=== PATIENT | male | born 1945 | race Caucasian/White ===

== ENCOUNTER → 2018-10-06 08:58 | Outpatient (CLI) | payer MEDICARE, SELFPAY ==
[2017-03-27 11:31] VITALS: BMI 28.0
--- NOTE | 2018-10-06 09:14 | RAD_ITS ---
STUDY: X-RAY - ABDOMEN/PELVIS REASON FOR EXAM: Male, 73 years old. Annual checkup for kidney stones. TECHNIQUE: AP supine view. COMPARISON: 10/07/2017. FINDINGS: Lung bases are not included. Fecal contents in the colon. At least 2 radiopaque calculi in the left kidney. Sclerotic density overlying the left 12th posterior rib may be ingested material rather than calculus. There is no demonstrated free abdominal air. The visualized liver, spleen and kidneys are grossly normal in size and morphology. Multiple calcified phleboliths in the pelvis are unchanged. No acute osseous abnormality. RAD/Abdomen Single View IMPRESSION: 1. At least 2 radiopaque calculi in the region of the left kidney. CT IVP will be more helpful if clinically warranted. 2. No suspicious acute abnormality in the abdomen. 3. No significant change when compared to 10/07/2017. Electronically Signed: Antonino Blanchard MD at 11:14 EST , Service support ,
--- OUTSIDE RECORDS SUMMARY | 2018-11-29 11:44 | XMS RPT_ITS ---
:1945 Author Organization OHIP Support Name Relationship Address Phone R Unavailable Unavailable Unavailable WEIPIEDAD CHAITANYA Unavailable [address] + [place] [address] R Unavailable Unavailable Unavailable BARON CHAITANYA Unavailable [address] + [place] [address] R Unavailable Unavailable Unavailable ABRON CHAITANYA Unavailable [address] + [place] [id number] BARON, CHAITANYA Unavailable Unavailable + BARON CHAITANYA Unavailable [address] Unavailable [place] [id number] BARON, CHAITANYA Unavailable [address] Unavailable [place] [id number] BARON, CHAITANYA Unavailable [address] [place] [address] BARON, CHAITANYA Unavailable [address] + [place] [address] BARON, CHAITANYA Unavailable [address] Unavailable [place] [id number] BARNO, CHAITANYA Unavailable [address] Unavailable [place] [id number] BARON, CHAITANYA Unavailable Unavailable + BARON CHAITANYA Unavailable [address] Unavailable [place] [id number] BARON, CHAITANYA Unavailable [address] + [place], [facility] BARON, CHAITANYA Unavailable [address] Unavailable [place] [address] BARON, CHAITANYA Unavailable [address] + [place], [facility] BARON, CHAITANYA Unavailable [address] + [place] [address] BARON, CHAITANYA Unavailable [address] + [place] [id number] BARON, CHAITANYA Unavailable [address] + [place] [id number] BARON, CHAITANYA Unavailable Unavailable + BARON CHAITANYA Unavailable Unavailable + WEIPIEDAD, CHAITANYA Unavailable [address] + [place] [address] WEIPIEDAD, CHAITANYA Unavailable [address] + [place] [address] BARON, CHAITANYA Unavailable [address] + [place] [address] BARON, CHAITANYA Unavailable Unavailable + BARON, CHAITANYA Unavailable Unavailable + BARON, CHAITANYA Unavailable Unavailable + Care Team Providers Name Role Phone ESTER ELMORE Attending Unavailable KODZ, JACI C. Primary Care Unavailable ESTER ELMORE Attending Unavailable KODZ, JACI C. Primary Care Unavailable ESTER ELMORE Attending Unavailable KODZ, JACI C. Primary Care Unavailable ESTER ELMORE Admitting Unavailable KAMINI MUNGUIA Attending Unavailable ESTER ELMORE Referring Unavailable KODZ, JACI C. Primary Care Unavailable ESTER ELMORE Referring Unavailable KODZ, JACI C. Primary Care Unavailable ESTER ELMORE Attending Unavailable KODZ, JACI C. Primary Care Unavailable ESTER ELMORE Attending Unavailable KODZ, JACI C. Primary Care Unavailable ARNULFO FORD Attending Unavailable KODZ, JACI C. Primary Care Unavailable ESTER ELMORE Attending Unavailable KODZ, JACI C. Primary Care Unavailable AUDRA MALDONADO Attending Unavailable KODZ, JACI C. Primary Care Unavailable ESTER ELMORE Attending Unavailable KODZ, JACI C. Primary Care Unavailable Dr. Ester Elmore Admitting Unavailable Ramírez, Dr. Ester Girard Attending Unavailable Ramírez, Dr. Ester Girard Admitting Unavailable Ramírez, Dr. Ester Girard Attending Unavailable Ramírez, Dr. Ester Girard Admitting Unavailable Ramírez, Dr. Ester Girard Attending Unavailable Ramírez, Dr. Ester Girard Admitting Unavailable Ramírez, Dr. Ester Girard Attending Unavailable Ramírez, Dr. Ester Girard Admitting Unavailable Ramírez, Dr. Ester Girard Attending Unavailable Rodney Reagan Attending Unavailable Rodney Reagan Referring Unavailable ABA BERG Primary Care Unavailable Rodney Reagan Attending Unavailable Merary Rodney Bazan Referring Unavailable ABA BERG Primary Care Unavailable Lilibeth ReaganDeyvi Attending Unavailable Merary Deyvi Referring Unavailable ABA BERG Primary Care Unavailable Kodz, Jaci C Admitting Unavailable Kodz, Lone Jack C Attending Unavailable Kodz, Lone Jack C Primary Care Unavailable Kodz, Lone Jack C Admitting Unavailable Kodz, Lone Jack C Attending Unavailable Kodlino Jaci C Primary Care Unavailable JACI LOYA MD Attending Unavailable VINCENZO ANDERSON JACI C Primary Care Unavailable VINCENZO ANDERSON JACI C Primary Care Unavailable JACI LOYA MD Primary Care Unavailable JACI LOYA MD Attending Unavailable JACI LOYA MD Primary Care Unavailable JACI LOYA MD Attending Unavailable JACI LOYA MD Primary Care Unavailable PROBLEMS PROBLEMS DATE TYPE CONDITION / CODE ATTENDING STATUS SOURCE 10/08/2018 Unknown Z87.442 - Personal Rodney Reagan Active [place] history of urinary [facility] calculi / Hospital Z87.442(ICD-10) Repository 10/06/2018 Unknown N20.0 - Calculus of Rodney Reagan Active [place] [facility] / [facility] N20.0(ICD-10) Hospital Repository 07/29/2018 Admitting Unknown / BRUNICARDI [facility] diagnosis UNK(Unknown) AUDRA MCCOLLUME Three Repository 06/02/2018 Admitting Presence of right RAMÍREZ, [employer] diagnosis artificial knee ESTER MADRIGAL Three joint / Repository Z96.651(ICD-10) 05/13/2018 Admitting Essential (primary) KAMINI MUNGUIA [facility] diagnosis hypertension / Three I10(ICD-10) Repository 05/13/2018 Admitting Benign prostatic KAMINI MUNGUIA [facility] diagnosis hyperplasia without Three lower urinary tract Repository symptoms / N40.0(ICD-10) 05/13/2018 Admitting Hyperlipidemia, KAMINI MUNGUIA [facility] diagnosis unspecified / Three E78.5(ICD-10) Repository 05/13/2018 Admitting Encounter for other KAMINI MUNGUIA [facility] diagnosis preprocedural Three examination / Repository Z01.818(ICD-10) 05/13/2018 Admitting Encounter for KAMINI MUNGUIA [facility] diagnosis preprocedural Three cardiovascular Repository examination / Z01.810(ICD-10) 02/10/2018 Admitting Unilateral primary RAMÍREZ, Active [facility] diagnosis osteoarthritis, ESTER Vieyra right knee / Repository M17.11(ICD-10) 02/10/2018 Admitting Pain in right foot / RAMÍREZ, Active [facility] diagnosis M79.671(ICD-10) ESTER Vieyra Repository 02/10/2018 Admitting Pain in right knee / RAMÍREZ, Active [facility] diagnosis M25.561(ICD-10) ESTER Vieyra Repository 02/10/2018 Admitting Plantar fascial RAMÍREZ, 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) Repository PROCEDURES PROCEDURES No Procedure Records FoundRESULTS RESULTS ABDOMEN SINGLE VIEW Observed: 10/20/2018 Status: F Source: [place] 1:45 PM [facility] [place] REPOSITORY [facility] Imaging Services [address] [facility] [place] [address] Abdomen Single View MR#: [id number] Acct: [id number] Name: JUNIOR DRAPER Rep #: [id number] : 1945 73 From: Leo Skaggs MD PCP: OUT OF TOWN DOCTOR Status: REG CLI Study: Abdomen Single View Date of Exam: 10/20/18 Exam# [id number] Ordering Dr: Rodney Reagan MD STUDY: X-RAY - ABDOMEN/PELVIS REASON FOR EXAM: Male, 73 years old. Kidney stones. TECHNIQUE: Single AP view of the abdomen / pelvis. COMPARISON: Numerous previous exams including the most recent of 10/06/2018.. FINDINGS: No definite abnormal calcifications seen on this exam, although small stones could be missed by overlying bowel contents. There is an unremarkable bowel gas pattern. There is no demonstrated free abdominal air. The visualized liver, spleen and kidneys are grossly normal in size and morphology. Normal soft tissue structures. There are diffuse degenerative changes of the visualized lumbar spine. RAD/Abdomen Single View IMPRESSION: No definite renal or ureteral stones. Electronically Signed: Leo Skaggs MD at 14:28 EST , Service support , CC: Rodney Reagan MD; OUT OF TOWN DOCTOR Disability Program Navigator: Signed AMB OFFICE-PROGRESS Observed: 10/16/2018 Status: F Source: [facility] NOTES-PROVIDER 3:08 PM [facility] REPOSITORY CD:[id number]:[id number]ulUnVIcyOl1nt6gdRA71at5ePyCuDt8+ZUBxBJ82rNgxdnCg [file] PSJfRk CD:[id number]:[id number]pbZgPuLLcoSgUgSTTeQaDCFc8Sgm75mAZiYbtcg1Zfwv35 B5Idqv9ESkjNIBgjiTLtM0vrw6J0AjZqYO4nH37uaXXpzXq7ZZ9tTGCtAM3ahvKnuBNgAVWmDkSk eiJynyG2tCIgFYXMBF3EQQzVISVGNuYoCMEkNzKfjCe0wPibZWJuSDj5UhTvLYFglSU0Lc43HWZ8 MIq1BV3WNRAMGZLqRgLgAJHAUT77GrQfOrU0VGepUDWsBHL2tLslAWT6JEo6IXufUSEziChaAKWk gBqxdHAbMCtrBa6eTTK4FkAzTD95GK4nyhglfg6aUGK3IxJzHJ69AcZ3wPzxnxphND4eSHtoWC7v P5WxM5XiVR20CVMie24yDon2rJWin81rVdsmJVIsQP9nY5pxn7C6HrUqMG8wP87ozPXpcRv0KK3j OUOfFfIidlGbxqW6gYJnLTLYJO7SEBlMOIZuZVL0TK81xTS3vCP8MyG2Ydk0IxLtCUxtEZQnTWOj OPWtTaAcXoZeOG02SaStXXHnRTGwXLN9LhBkGEJ9LxmQUh0Il9NyQEGvXY3qcIDuBwjaRJe9UnpO YOw0I5Fkow3PBGyAKL0yaNX+JbuAOAl7XBt3UIZoBQWsQIRkLKCmQ0Ntg96uHSUkRNDmVPAmVCIa KPTfOCzta2DleDLwCLQ4LCm7VYRqllSxz5ByAgdcUyGrWKttYIL2zM2jL53pUQ9eAS5STqOlGNKd VrjsYyVkwCG5Jd4BMMZ4FhgSFY4DMLJQABY6COYeNVY1EX3OSZgJBliTXVK1BqLjBDR6cLcmMERi WJNdjR7tLrH8yVj3TIPuc1CuTYv6IB6pdxV7Tu39e6TtpgFdsYNziq1pKMBpCUM5bA3iXZkowUvw Bryn+DQXzYY0tc4V5hSL6EuBbuvDiu6BjM0c4VfBsk2duEvR7SAr9IDXoN63uVPFug249UKFdFBAd [file] mEX2VvOyhH6abbawCzdtZSv8FzfIStklWt6weI40F2b4yZe+ OPERATIVE REPORT Observed: 10/08/2018 Status: F Source: [place] 5:55 PM [facility] REPOSITORY [facility] Medical Records Department [address] [place] [address] Operative Report 10/08/18 1753 MR#: [id number] Acct: [id number] Name: JUNIOR DRAPER Rep #: [id number] : 1945 73 From: Rodney Reagan MD PCP: OUT OF TOWN DOCTOR Status: REG [facility] Location: [place] [address] Report of Operation Date of Procedure: 10/08/18 Pre-Operative Diagnosis: Left kidney stone Post-Operative Diagnosis: Same Surgery/Procedure Performed:: Left ESWL Description of Surgical Findings:: 73-year-old male taken back to the operating room at the smooth induction of general anesthesia he was placed supine on the table we then positioned the patient under the F2 focal point of the lithotripter machine we could see the stone by moving the therapy had around we then started with shockwave lithotripsy at a rate of 60 power up to slowly work her way up to 7. After thousand shocks we checked and the stone is been breaking up really well we continue shockwave therapy at 2000 shockwaves is hard to see the stone anymore we then increased the rate lower the power and then get a total of 3000 shockwaves to the stone the stone appeared to fragment completely can see any other fragments visible under x-ray therefore no stent was placed patient anesthesia was reversed and currently is being taken back to PACU. Type of Anesthesia:: General - Admit VTE Documentation VTE Present on Admission: No VTE Mechan Device Prophylaxis: SCD's 10/08/18 2155 <Electronically signed by Rodney Reagan MD> Date Rodney Reagan MD CC: JACI LOYA; Rodney Reagan MD; OUT OF TOWN DOCTOR Signed DISCHARGE INSTRUCTION Observed: 10/08/2018 Status: F Source: [place] 4:46 PM [facility] REPOSITORY [facility] Medical Records Department [address] [place] [address] Instructions for Home/Discharge Instructions 10/08/18 1645 MR#: [id number] Acct: [id number] Name: JUNIOR DRAPER Rep #: [id number] : 1945 73 From: Rodney Reagan MD PCP: OUT OF TOWN DOCTOR Status: REG CTC Discharge Diet: Light diet - advance as tolerated Discharge Activity: Return to Normal Activity, May not drive while taking narcotic pain medications. Suture Line Care: Avoid Pulling/Pushing, Avoid Pinching/Bending Instructions: Shock Wave Lithotripsy Allergies/Adverse Reactions: Allergies No Known Allergies Allergy (Verified 10/06/18 14:41) Medications to take at Discharge Ascorbic Acid [Vitamin C] 1,000 mg PO DAILY@0800 02/27/16 Aspirin [Aspirin, Baby] 81 mg PO MOWEFR 02/27/16 Cholecalciferol (VIT D3) [Vitamin D] 5,000 unit PO DAILY 02/27/16 Co Q10 200 [Co Q-10] 200 mg PO BID 02/27/16 Cyanocobalamin (Vitamin B-12) [Vitamin B12] 5,000 mcg PO DAILY 02/27/16 Glucosam/Chondr-MSM#6/Manganes [Glucosamine-Chondroitin Sftgl] 1 each PO DAILY 02/27/16 Lisinopril [Zestril] 5 mg PO DAILY 02/27/16 Simvastatin [Zocor] 10 mg PO QHS 02/27/16 Tamsulosin HCl [Flomax] 0.4 mg PO DAILY #30 capsule 02/29/16 [place]-3 Fatty Acids [Fish Oil] 500 mg PO DAILY 03/26/17 Docusate Sodium [Colace] 100 mg PO BID #20 cap 10/08/18 Oxycodone HCl/Acetaminophen [Percocet 5/325] 1 tab PO Q4H PRN PRN 5 Days #20 tab 10/08/18 The following prescriptions were given: Oxycodone HCl/Acetaminophen [Percocet 5/325] 1 tab PO Q4H PRN PRN 5 Days #20 tab PRN Reason: Pain Docusate Sodium [Colace] 100 mg PO BID #20 cap Primary Care Physician: [facility] Doctor,Out of [Primary Care Provider] - Test Results: Test results from this visit will be discussed in further detail at your follow-up appointment, if applicable. Please Follow Up With: Rodney Reagan MD When: in 2 weeks, please call to make an appointment. w xray 10/08/18 1646 <Electronically signed by Rodney Reagan MD> Date Rodney Reagan MD CC: JACI LOYA; OUT OF [facility] DOCTOR CMP Collected: 10/06/2018 Status: F Source: [facility] 11:17 AM [facility] SYSTEM REPOSITORY TYPE CODE TESTS RESULT OUT OF RANGE REFERENCE UNITS LAB [id number](L 70-99 mg/dL OINC) Glucose Normal Lvl 85 LAB 25584025(L 6-23 mg/dL OINC) BUN Normal 21 LAB 5797869(LO 0.5-1.3 mg/dL INC) Normal Creatinine 1.0 LAB [id number](L 8.6-10.3 mg/dL OINC) Calcium Normal Lvl 9.0 LAB [id number](L 136-145 mEq/L OINC) Sodium Normal Lvl 140 LAB 52905086(L 3.5-5.3 mEq/L OINC) Normal Potassium Lvl 4.2 LAB 48300097(L 98-107 mEq/L OINC) Chloride Normal 106 LAB 67802903(L 21.0-32.0 mEq/L OINC) CO2 Normal 31.0 LAB 65093601(L 33-136 Int._Unit/ OINC) L Alk Phos Normal 91 LAB [id number](L 0.00-1.20 mg/dL OINC) Bili Normal Total 1.10 LAB [id number](L 3.4-5.0 gm/dL OINC) Albumin Normal Lvl 4.1 LAB 96497905(L 6.4-8.2 gm/dL OINC) Total Normal Protein 6.4 LAB 99291380(L 10-52 Int._Unit/ OINC) L ALT Normal 17 LAB [id number](L 9-39 Int._Unit/ OINC) L AST Normal 22 LAB 50031244(L 5.4-30.0 ratio OINC) Normal BUN/Creat Ratio 21.0 LAB [id number](L 10-20 mEq/L OINC) Low AGAP 7 LAB 25395438(L 2.0-4.0 G/DL OINC) Globulin Normal 2.0 LAB 45628378(L 1.1-1.9 ratio OINC) A/G Normal Ratio 1.8 Performed By: #### [id number] #### SANDRA [employer] [facility] [place] [address] EGFR Collected: 10/06/2018 Status: F Source: [facility] 11:17 AM [facility] REPOSITORY Order Comment: Order added by Discern Expert. TYPE CODE TESTS RESULT OUT OF RANGE REFERENCE UNITS LAB [id number](LO mL/min/1.73 INC) m2 Normal eGFR >60 LAB 01188064(LO mL/min/1.73 INC) m2 Normal eGFR AA >60 Performed By: #### [id number] #### SANDRA [employer] [address] [place] [address] CRP Collected: 10/06/2018 Status: F Source: [facility] 11:17 AM [facility] REPOSITORY TYPE CODE TESTS RESULT OUT OF RANGE REFERENCE UNITS LAB [id number](LO 0.00-1.00 mg/dL INC) Normal CRP 0.48 Performed By: #### [id number] #### SANDRA [employer] [address] [place] [address] LIPID PROFILE Collected: 10/06/2018 Status: F Source: [facility] 11:17 AM [facility] REPOSITORY TYPE CODE TESTS RESULT OUT OF RANGE REFERENCE UNITS LAB [id number](LO 0-199 mg/dL INC) Normal Chol 152 Result Comment: TOTAL CHOLEESTEROL: <200 NORMAL 200 - 239 BORDERLINE HIGH >240 HIGH LAB 91840613(LOINC) 40-60 mg/dL Normal HDL 49 LAB 43199561(LOINC) 0-130 mg/dL Normal LDL 88 Result Comment: <100 OPTIMAL 100-129 NEAR / ABOVE OPTIMAL 130-159 BORDERLINE HIGH 160-189 HIGH >190 VERY HIGH CALC LDL NOT VALID WHEN TRIGLYCERIDE IS >400 MG/DL LAB 32488011(LOINC) 0-149 mg/dL Normal Trig 75 Result Comment: AGE DESIRABLE BORDERLINE HIGH 91 D - 9 Y 0 - 74 75 - 99 > 100 10 - 19 Y 0 - 89 90 - 129 > 130 20 -24 Y 0 - 114 115 - 149 > 150 > 25 0 - 149 150 - 199 200 - 499 LAB 32914741(LOINC) 0-40 mg/dL Normal VLDL 15 Performed By: #### [id number] #### SANDRA [employer] [address] [place] [address] ABDOMEN SINGLE VIEW Observed: 10/06/2018 Status: F Source: [place] 9:14 AM [facility] REPOSITORY [facility] Imaging Services [address] [place] [address] Abdomen Single View MR#: [id number] Acct: [id number] Name: JUNIOR DRAPER Rep #: [id number] : 1945 M 73 From: Antonino Blanchard MD PCP: OUT OF TOWN DOCTOR Status: REG CLI Study: Abdomen Single View Date of Exam: 10/06/18 Exam# [id number] Ordering Dr: Rodney Reagan MD STUDY: X-RAY - ABDOMEN/PELVIS REASON FOR EXAM: Male, 73 years old. Annual checkup for kidney stones. TECHNIQUE: AP supine view. COMPARISON: 10/07/2017. FINDINGS: Lung bases are not included. Fecal contents in the colon. At least 2 radiopaque calculi in the left kidney. Sclerotic density overlying the left 12th posterior rib may be ingested material rather than calculus. There is no demonstrated free abdominal air. The visualized liver, spleen and kidneys are grossly normal in size and morphology. Multiple calcified phleboliths in the pelvis are unchanged. No acute osseous abnormality. RAD/Abdomen Single View IMPRESSION: 1. At least 2 radiopaque calculi in the region of the left kidney. CT IVP will be more helpful if clinically warranted. 2. No suspicious acute abnormality in the abdomen. 3. No significant change when compared to 10/07/2017. Electronically Signed: Antonino Blanchard MD at 11:14 EST , Service support , CC: Rodney Reagan MD; OUT OF TOWN DOCTOR Disability Program Navigator: Signed PHONE MSG Observed: 09/02/2018 Status: F Source: [facility] 11:59 AM [facility] REPOSITORY Entered by JACI LOYA MD on September 02, 2018 11:59:34 EDT From: JACI LOYA MD To: [facility]/pharmacy #[id number] Sent: 09/02/2018 11:59:34 EDT Subject: Medication Management Submitted: Complete:simvastatin (simvastatin 10 mg oral tablet) Signed by JACI LOYA MD 09/02/2018 11:59:00 Submitted: Complete:lisinopril (lisinopril 5 mg oral tablet) Signed by JACI LOAY MD 09/02/2018 11:59:00 Approved lisinopril (LISINOPRIL 5 MG TABLET) TAKE 1 TABLET BY MOUTH DAILY Qty: 90 TB Days Supply: 90 Refills: 0 Substitutions Allowed Route To Pharmacy - [facility]/pharmacy #[id number] Approved simvastatin (SIMVASTATIN 10 MG TABLET) TAKE 1 TABLET BY MOUTH AT BEDTIME Qty: 90 TB Days Supply: 90 Refills: 0 Substitutions Allowed Route To Pharmacy - [facility]/pharmacy #[id number] From: [facility]/pharmacy #[id number] To: JACI LOYA MD Sent: September 02, 2018 2:22:36 AM EDT Subject: Medication Management Due: September 03, 2018 2:22:36 AM EDT On Hold Pending Signature Drug: lisinopril (lisinopril 5 mg oral tablet) TAKE 1 TABLET BY MOUTH DAILY Quantity: 90 TB Days Supply: 90 Refills: 0 Substitutions Allowed Notes from Pharmacy: Dispensed Drug: lisinopril (lisinopril 5 mg oral tablet) TAKE 1 TABLET BY MOUTH DAILY Quantity: 90 TB Days Supply: 90 Refills: 0 Substitutions Allowed Notes from Pharmacy: On Hold Pending Signature Drug: simvastatin (simvastatin 10 mg oral tablet) TAKE 1 TABLET BY MOUTH AT BEDTIME Quantity: 90 TB Days Supply: 90 Refills: 0 Substitutions Allowed Notes from Pharmacy: Dispensed Drug: simvastatin (simvastatin 10 mg oral tablet) TAKE 1 TABLET BY MOUTH AT BEDTIME Quantity: 90 TB Days Supply: 90 Refills: 0 Substitutions Allowed Notes from Pharmacy: PHONE MSG Observed: 07/16/2018 Status: F Source: [facility] 12:41 PM [facility] REPOSITORY Entered by JACI LOYA MD on July 16, 2018 12:41:20 EDT From: JACI LOYA MD To: [facility]/pharmacy #[id number] Sent: 07/16/2018 12:41:20 EDT Subject: Medication Management Submitted: Complete:metoprolol (Metoprolol Tartrate 25 mg oral tablet) Signed by JACI LOYA MD 07/16/2018 12:41:00 Approved with modifications: metoprolol (METOPROLOL TARTRATE 25 MG TAB) 1/2 TABLET DAILY Qty: 45 TB Days Supply: 90 Refills: 1 Substitutions Allowed Route To Pharmacy - [facility]/pharmacy #[id number] Patient matched by JACI LOYA MD on 07/16/2018 12:40:57 EDT From: [id number] To: JACI LOYA MD Sent: July 16, 2018 2:13:52 AM EDT Subject: Medication Management Due: July 17, 2018 2:13:52 AM EDT On Hold Pending Signature Drug: metoprolol (Metoprolol Tartrate 25 mg oral tablet) 1/2 TABLET DAILY Quantity: 45 TB Days Supply: 90 Refills: 0 Substitutions Allowed Notes from Pharmacy: Dispensed Drug: metoprolol (Metoprolol Tartrate 25 mg oral tablet) 1/2 TABLET DAILY Quantity: 45 TB Days Supply: 90 Refills: 0 Substitutions Allowed Notes from Pharmacy: XR KNEE RIGHT 3 VIEWS Observed: 06/30/2018 Status: F Source: [facility] (SPECIFY VIEWS IN 12:00 AM THREE REPOSITORY COMMENTS) X-ray of the right knee 3 views for postop reveals normal-appearing right total knee replacement Dictated by: ESTER ELMORE on SatJun 30, 2018 3:26:39 PM EDT Transcribed by: ESTER ELMORE on SatJun 30, 2018 3:26:39 PM EDT Finalized by: ESTER ELMORE on SatJun 30, 2018 3:26:39 PM EDT PHONE MSG Observed: 06/05/2018 Status: F Source: [facility] 7:37 AM [facility] REPOSITORY Entered by JACI LOYA MD on June 05, 2018 07:37:42 EDT From: JACI LOYA MD To: [id number] Sent: 06/05/2018 07:37:42 EDT Subject: Medication Management Submitted: Complete:simvastatin (simvastatin 10 mg oral tablet) Signed by JACI LOYA MD 06/05/2018 07:37:00 Approved simvastatin (SIMVASTATIN 10 MG TABLET) TAKE 1 TABLET BY MOUTH AT BEDTIME Qty: 90 TB Days Supply: 90 Refills: 0 Substitutions Allowed Route To Pharmacy - [facility]/pharmacy #[id number] Patient matched by JACI LOYA MD on 06/05/2018 07:37:26 EDT From: [facility]/pharmacy #[id number] To: JACI LOYA MD Sent: June 05, 2018 1:55:57 AM EDT Subject: Medication Management Due: June 06, 2018 1:55:57 AM EDT On Hold Pending Signature Drug: simvastatin (simvastatin 10 mg oral tablet) TAKE 1 TABLET BY MOUTH AT BEDTIME Quantity: 90 TB Days Supply: 90 Refills: 0 Substitutions Allowed Notes from Pharmacy: Dispensed Drug: simvastatin (simvastatin 10 mg oral tablet) TAKE 1 TABLET BY MOUTH AT BEDTIME Quantity: 90 TB Days Supply: 90 Refills: 0 Substitutions Allowed Notes from Pharmacy: PHONE MSG Observed: 06/03/2018 Status: F Source: [facility] 3:13 PM [facility] REPOSITORY Entered by JACI LOYA MD on June 03, 2018 15:13:30 EDT From: JACI LOYA MD To: [facility]/pharmacy #[id number] Sent: 06/03/2018 15:13:29 EDT Subject: Medication Management Submitted: Complete:lisinopril (lisinopril 5 mg oral tablet) Signed by JACI LOYA MD 06/03/2018 15:13:00 Approved lisinopril (LISINOPRIL 5 MG TABLET) TAKE 1 TABLET BY MOUTH DAILY Qty: 90 TB Days Supply: 90 Refills: 0 Substitutions Allowed Route To Pharmacy - [facility]/pharmacy #[id number] Approved lisinopril (LISINOPRIL 5 MG TABLET) TAKE 1 TABLET BY MOUTH DAILY Qty: 90 TB Days Supply: 90 Refills: 0 Substitutions Allowed Route To Pharmacy - [facility]/pharmacy #[id number] Patient matched by JACI LOYA MD on 06/03/2018 15:13:08 EDT From: [facility]/pharmacy #[id number] To: JACI LOYA MD Sent: May 28, 2018 12:06:34 PM EDT Subject: Medication Management Due: May 29, 2018 12:06:34 PM EDT On Hold Pending Signature Drug: lisinopril (lisinopril 5 mg oral tablet) TAKE 1 TABLET BY MOUTH DAILY Quantity: 90 TB Days Supply: 90 Refills: 0 Substitutions Allowed Notes from Pharmacy: Dispensed Drug: lisinopril (lisinopril 5 mg oral tablet) TAKE 1 TABLET BY MOUTH DAILY Quantity: 90 TB Days Supply: 90 Refills: 0 Substitutions Allowed Notes from Pharmacy: On Hold Pending Signature Drug: lisinopril (lisinopril 5 mg oral tablet) TAKE 1 TABLET BY MOUTH DAILY Quantity: 90 TB Days Supply: 90 Refills: 0 Substitutions Allowed Notes from Pharmacy: Dispensed Drug: lisinopril (lisinopril 5 mg oral tablet) TAKE 1 TABLET BY MOUTH DAILY Quantity: 90 TB Days Supply: 90 Refills: 0 Substitutions Allowed Notes from Pharmacy: XR CHEST 2 VIEWS Observed: 05/30/2018 Status: F Source: [facility] 8:52 AM [facility] REPOSITORY Exam Date/Time: 05/30/2018 09:03 EDT Reason for Exam: benign essential HTN Report STUDY: XR Chest 2 Views; 05/30/2018 9:03 am INDICATION: benign essential HTN. COMPARISON: 05/13/2014 ACCESSION NUMBER(S): [id number] ORDERING CLINICIAN: Jaci Loya FINDINGS: CARDIOMEDIASTINAL SILHOUETTE: The cardiac silhouette is normal in size without venous congestion. There is tortuosity of the thoracic aorta unchanged from prior. LUNGS: Lungs are clear. ABDOMEN: No remarkable upper abdominal findings. BONES: No acute osseous changes. IMPRESSION: 1. No evidence of acute cardiopulmonary process. FINAL REPORT Dictated: 05/30/2018 11:37 am Josef Méndez MD Signed (Electronic Signature): 05/30/2018 11:37 am Signed by: Josef Méndez MD Technologist: TRD CBC W/ AUTO DIFF Collected: 05/30/2018 Status: F Source: [facility] 8:45 AM [facility] REPOS[facility] TYPE CODE TESTS RESULT OUT OF RANGE REFERENCE UNITS LAB [id number](L 3.6-11.0 E3/mcL OINC) Normal WBC 6.3 LAB 14020404(L 3.90-6.10 E6/mcL OINC) Normal RBC 4.55 LAB [id number](L 13.5-18.0 G/DL OINC) Normal Hgb 13.7 LAB 15635913(L 42.0-52.0 % OINC) Low Hct 41.3 LAB 35454814(L 11.5-14.5 % OINC) High RDW 14.6 LAB 67612824(L 27.0-31.0 pg OINC) Normal MCH 30.2 LAB 92412764(L 33.0-37.0 G/DL OINC) Normal MCHC 33.2 LAB 26655793(L 78.0-100.0 fL OINC) Normal MCV 90.9 LAB 98412228(L 7.4-11.0 fL OINC) Normal MPV 7.7 LAB [id number](L 130-400 E3/mcL OINC) Normal Platelet 235 Performed By: #### [id number] #### SANDRA [employer] [facility] [place] [address] AUTO DIFF Collected: 05/30/2018 Status: F Source: [facility] 8:45 AM [facility] REPOSITORY Order Comment: Order Added by Discern Expert. TYPE CODE TESTS RESULT OUT OF RANGE REFERENCE UNITS LAB [id number](L 37.0-75.0 % OINC) Normal Neutro Auto 67.6 LAB 75307706(L 20.0-55.0 % OINC) Normal Lymph Auto 20.3 LAB 63710584(L 0.0-10.0 % OINC) Normal Hood Auto 8.3 LAB 94123453(L 0.0-11.0 % OINC) Normal Eos Auto 3.4 LAB 27200718(L 0.0-2.0 % OINC) Normal Basophil Auto 0.4 LAB 21008732(L 1.4-6.5 E3/mcL OINC) Normal Neutro 4.2 Absolute LAB 07662406(L 1.2-3.4 E3/mcL OINC) Normal Lymph Absolute 1.3 LAB 27543513(L 0.0-0.7 E3/mcL OINC) Normal Hood Absolute 0.5 LAB 25599953(L 0.0-0.7 E3/mcL OINC) Normal Eos Absolute 0.2 LAB 87464737(L 0.0-0.2 E3/mcL OINC) Normal Basophil 0.0 Absolute Performed By: #### [id number] #### SANDRA [employer] [facility] [place] [address] T4 TOTAL Collected: 05/30/2018 Status: F Source: [facility] 8:45 AM [facility] REPOS[facility]ORY TYPE CODE TESTS RESULT OUT OF RANGE REFERENCE UNITS LAB [id number](LO 6.09-12.23 MCG/D INC) Normal T4 10.33 Performed By: #### [id number] #### SANDRA [employer] [facility] [place] [address] CMP Collected: 05/30/2018 Status: F Source: [facility] 8:45 AM [facility] REPOS[facility] TYPE CODE TESTS RESULT OUT OF RANGE REFERENCE UNITS LAB [id number](L 70-99 mg/dL OINC) Glucose Normal Lvl 92 LAB 02551238(L 8.4-10.2 mg/dL OINC) Calcium Normal Lvl 8.8 LAB [id number](L 136-145 mEq/L OINC) Sodium Normal Lvl 139 LAB 93585612(L 3.5-5.1 mEq/L OINC) Normal Potassium Lvl 3.9 LAB 67490679(L 98-107 mEq/L OINC) Chloride Normal 102 LAB 08625960(L 24.0-30.0 mEq/L OINC) CO2 Normal 26.5 LAB 23215121(L 7-18 mg/dL OINC) High BUN 31 LAB 4661095(LO 0.6-1.3 mg/dL INC) Normal Creatinine 1.1 LAB 62500596(L 42-121 Int._Unit/ OINC) L Alk Phos Normal 65 LAB 82019833(L 0.2-1.0 mg/dL OINC) High Bili Total 1.5 LAB 06600845(L 3.2-5.0 G/DL OINC) Albumin Normal Lvl 3.7 LAB 44086662(L 6.4-8.3 G/DL OINC) Total Normal Protein 6.8 LAB 38176334(L 10-40 Int._Unit/ OINC) L ALT Normal 22 LAB 39335770(L 10-42 Int._Unit/ OINC) L AST Normal 33 LAB 24796890(L 5.4-30.0 ratio OINC) Normal BUN/Creat Ratio 28.2 LAB 02907857(L 2.0-4.0 G/DL OINC) Globulin Normal 3.1 LAB 74722315(L 1.1-1.9 ratio OINC) A/G Normal Ratio 1.2 Performed By: #### [id number] #### SANDRA [employer] [address] [place] [address] TSH Collected: 05/30/2018 Status: F Source: [facility] 8:45 AM [facility] REPOS[facility] TYPE CODE TESTS RESULT OUT OF RANGE REFERENCE UNITS LAB [id number](LO 0.30-5.60 mIU/m INC) Normal TSH 1.51 Performed By: #### [id number] #### SANDRA [employer] [facility] [place] [address] FREE T3 Collected: 05/30/2018 Status: F Source: [facility] 8:45 AM [facility] REPOS[facility]ORY TYPE CODE TESTS RESULT OUT OF RANGE REFERENCE UNITS LAB [id number](LO 2.5-3.9 pg/mL INC) High Free T3 4.1 Performed By: #### [id number] #### SANDRA [employer] [facility] [place] [address] EGFR Collected: 05/30/2018 Status: F Source: [facility] 8:45 AM [facility] RE[facility] Order Comment: Order added by Discern Expert. TYPE CODE TESTS RESULT OUT OF RANGE REFERENCE UNITS LAB [id number](LO mL/min/1.73 INC) m2 Normal eGFR >60 LAB 06134677(LO mL/min/1.73 INC) m2 Normal eGFR AA >60 Performed By: #### [id number] #### SANDRA [employer] [facility] [place] [id number] PHOSPHORUS Collected: 05/30/2018 Status: F Source: [facility] 8:45 AM [facility] RE[facility] TYPE CODE TESTS RESULT OUT OF RANGE REFERENCE UNITS LAB [id number](L 2.5-4.6 mg/dL OINC) Normal Phosphorus 2.6 Performed By: #### [id number] #### SANDRA [employer] [facility] [place] [id number] LIPID PROFILE Collected: 05/30/2018 Status: F Source: [facility] 8:45 AM [facility] REPOS[facility]ORY TYPE CODE TESTS RESULT OUT OF RANGE REFERENCE UNITS LAB [id number](LO 50-200 mg/dL INC) Normal Chol 170 Result Comment: TOTAL CHOLEESTEROL: <200 NORMAL 200 - 239 BORDERLINE HIGH >240 HIGH LAB 27053931(LOINC) >=41 mg/dL Normal HDL 47 LAB 87811991(LOINC) 0-130 mg/dL Normal LDL 104 Result Comment: <100 OPTIMAL 100-129 NEAR / ABOVE OPTIMAL 130-159 BORDERLINE HIGH 160-189 HIGH >190 VERY HIGH CALC LDL NOT VALID WHEN TRIGLYCERIDE IS >400 MG/DL LAB 85323343(LOINC) 35-150 mg/dL Normal Trig 93 Result Comment: <150 NORMAL 150-199 BORDERLINE HIGH 200-499 HIGH >500 VERY HIGH LAB 97804973(LOINC) Normal VLDL 19 Performed By: #### [id number] #### SANDRA [employer] [address] [place], [place] [id number] VITAMIN D 25 HYDROXY Collected: 05/30/2018 Status: F Source: [facility] 8:45 AM [facility] RE[facility] TYPE CODE TESTS RESULT OUT OF RANGE REFERENCE UNITS LAB 660983927(L 30.0-100.0 ng/mL OINC) Normal Vitamin D 25 51.3 Hydroxy Performed By: #### [id number] #### SANDRA [employer] [facility] [place] [address] CRP Collected: 05/30/2018 Status: F Source: [facility] 8:45 AM [facility] REPOS[facility] TYPE CODE TESTS RESULT OUT OF RANGE REFERENCE UNITS LAB [id number](LO 0.00-0.75 mg/dL INC) High CRP 5.16 Performed By: #### [id number] #### SANDRA [employer] [facility] [place] [id number] T3 UPTAKE Collected: 05/30/2018 Status: F Source: [facility] 8:45 AM [facility] REPOS[facility] TYPE CODE TESTS RESULT OUT OF RANGE REFERENCE UNITS LAB 80388507(LO % INC) Normal T3 Uptake 27 Result Comment: No patient age and/or gender provided Age Male Female 0 - 11 months 23 - 34 23 - 36 1 - 3 years 24 - 35 24 - 36 4 - 6 years 24 - 34 24 - 35 7 - 11 years 24 - 33 22 - 35 12 - 15 years 25 - 37 23 - 37 16 - 18 years 24 - 38 23 - 35 >18 years 24 - 39 24 - 39 Performed At: [facility] [address] [place], [place] [id number] Fracisco Blanco PhD Ph:[phone] Performed By: #### [id number] #### SANDRA [employer] [facility] [place] [id number] T3 TOTAL Collected: 05/30/2018 Status: F Source: [facility] 8:45 AM [facility] REPOS[facility]ORY TYPE CODE TESTS RESULT OUT OF RANGE REFERENCE UNITS LAB [id number](LO 71-180 ng/dL INC) Normal T3 Total 118 Result Comment: Performed At: [facility] [address], [place] [id number] Fracisco Blanco PhD Ph:[phone] Performed By: #### [id number] #### SANDRA [employer] [address] [place], [place] [id number] HISTORY AND Observed: 05/22/2018 Status: F Source: [facility] 9:16 AM [facility] REPOSITORY [facility] [address] [address] NAME JUNIOR DRAPER [facility] [id number] 1945 DATE PRE-SURGICAL HISTORY AND PHYSICAL HISTORY Junior is a gentleman whom I have known for quite some period of time. This gentleman has battled right knee arthritis for the last 3 years. This gentleman has already had his left knee replaced. The right knee has become a source of chronic pain and discomfort that has been miserable. He has had multiple conservative measures over the last 3 years including pills, shots, and physical therapy. The gentleman went on to have x-rays in February due to the severity and progression of his pain, and the x-rays revealed severe end- stage medial compartment arthrosis with acquired varus deformity, medial compartment osteophytes and near end-stage patellofemoral degenerative changes. This has gotten to a point it is affecting every single activity of daily living, and he is now presenting for a right total knee replacement due to the severity of the pain and discomfort. ALLERGIES None. ILLNESSES Include high cholesterol, hypertension, prostate hypertrophy. SURGERIES He has had left and right knee arthroscopy, a left knee replacement. SOCIAL HISTORY He does not smoke. Does not drink. MEDICATION LIST Baby aspirin, vitamin B12, fish oil, glucosamine, lisinopril, metoprolol, Tamiflu on as needed basis, Zocor, Flomax. REVIEW OF SYSTEMS Joint pain, arthralgias, knee pain. PHYSICAL EXAM Chest: Clear. Heart: Regular rate and rhythm. Abdomen: Benign. Neck: No carotid bruits are noted. Neurologic: He is awake, alert and oriented x3. Ambulates without assistive device. Extremities: Right lower extremity neurologically intact with 2+ pulses. Full range of motion throughout his right ankle and hip. Right knee varus knee stance 5 degrees short of full extension, 110 degrees of flexion, severe crepitus, mild knee effusion. No ligamentous instability. Tenderness over the medial and lateral joint line. IMPRESSION Right knee degenerative arthrosis. PLAN At this point in time, will proceed with right total knee replacement. All risks, complications were discussed including the addictive nature of postoperative narcotic use and the need to exceed the 7-day supply and 30 morphine equivalency dose in a major orthopedic procedure such as total knee replacement. Last presurgical visit 05/12/2018. MD Moi KRAUS 05/20/2018 05:46 [id number] T 05/20/2018 06:01 MCJuan/CHERELLE Electronically Signed By Ester Elmore M.D. on 21 May 2018 11:37:26 GMT HISTORY AND Observed: 05/22/2018 Status: F Source: [facility] 9:16 AM [facility] REPOSITORY [facility] [address] [place] [address] NAME JUNIOR DRAPER [facility] [id number] 1945 DATE 05/21/2018 OPERATIVE REPORT / PROCEDURE NOTE SURGEON ESTER ELMORE MD PREOPERATIVE DIAGNOSIS Right knee degenerative arthrosis. POSTOPERATIVE DIAGNOSIS Right knee degenerative arthrosis. PROCEDURE Minimally-invasive robotic-assisted right total knee replacement. ANESTHESIA Spinal with LMA general augmentation. COMPLICATIONS No intraoperative complications. SPECIMENS Bone. ESTIMATED BLOOD LOSS 100 mL. TOURNIQUET No tourniquet was used. HISTORY Junior is a gentleman on whom I had done a previous left knee replacement over a half a decade ago. Now presents for a right knee replacement having failed conservative measures. For further details, see admission history and physical examination. He was explained all risks and complications of surgery including, but not limited to, the risks of infection, bleeding, neurologic or vascular injury, possibility of deep venous thrombosis, pulmonary embolism, myocardial infarction, stroke, or even with surgery. Explained the possibilities of continued pain, stiffness, loss of range of motion, as well as the need for future surgery. Given all the options of anesthetic per the anesthesia team and at this point time elected for a spinal anesthetic and if that failed to augment with a general anesthetic. PROCEDURE IN DETAIL The patient was met in the preoperative holding area, where the right knee was confirmed to be the appropriate site and marked by myself. Patient taken to the operative suite, given preoperative Kefzol per protocol, as well as a spinal anesthetic. Right lower extremity was placed in proximal thigh tourniquet, which was not used, and leg was sterilely prepped and draped using ChloraPrep solution as well as InteguSeal. After sterilization of the right lower extremity, we did our final time-out to confirm that the right knee was in fact the appropriate site that had been marked by myself. At this time, we then went ahead and made a 10 cm incision along the medial border patella. The patient had a little bit sensory function, anesthesia augment at the spinal anesthetic with general LMA anesthetic. Procedure continued with a medial arthrotomy, suprapatellar synovectomy, patella fat pad was debulked, and patella was cut. At this time, we went ahead and placed our distal femoral and proximal tibial checkpoint, placed our distal femoral and proximal tibial arrays. We then went ahead and did robotic-assisted mapping of the distal femur and proximal tibia. After this, we removed osteophytes, did flexion-extension gap balancing using robotic assistance. We then went ahead and proceeded forward with making robotic-assisted distal femoral and proximal tibial cuts. After the robotic assisted cuts, we removed medial and lateral redundant menisci, posterior femoral capsule, posterior femoral osteophytes, and sized the proximal tibia to be a size 4 tibial base plate. We did sequential reductions and settled on 9 mm cruciate-retaining tibial insert, which gave us full extension, full flexion, with excellent varus and valgus stability. Good patellar tracking was discovered with a size A35. After all components were selected, we then went ahead and proceeded forward with injecting our local anesthetic in the usual and standard fashion around the distal femur and the proximal tibia. We did copious amounts of antibiotic- impregnated irrigation. After the irrigation was completed, we then went ahead and proceeded forward with placing our size 4 tibial base plate, 9 mm cruciate-retaining tibial insert, 5 right femoral component, and A35 patella. After all components were in, the knee was ranged throughout a range of motion. There was full extension, full flexion, excellent varus and valgus stability, with good patella tracking. No lateral release was performed. At this time, we then went ahead and proceeded forward with final copious irrigation; 1 g of vancomycin powder was sprinkled throughout the contact surface areas of the right knee. Medial arthrotomy was closed using Vicryl #2. Final series of local was injected subcutaneously, 2- 0 Vicryl and skin kristal were used on skin. Exofin was placed on the wound as well as a sterile Aquacel dressing. The patient was taken to PACU without intraoperative complications. MD Moi KRAUS 05/21/2018 11:45 [id number] T 05/21/2018 12:23 MCB/MODL Electronically Signed By Ester Elmore M.D. on 21 May 2018 17:28:28 GMT HISTORY AND Observed: 05/22/2018 Status: F Source: [facility] 9:16 AM [facility] REPOSITORY [facility] [address] [place] [address] NAME JUNIOR DRAPER [employer] [id number] 1945 ADMIT 05/21/2018 DISCH 05/21/2018 DISCHARGE SUMMARY ADMITTING DIAGNOSIS Right knee degenerative arthrosis. DISCHARGE DIAGNOSIS Status post right total knee replacement. HISTORY Junior is a gentleman who, years ago, I did a left knee replacement. On the day of admission, underwent right total knee replacement. Postoperatively, he had an uncomplicated postoperative course, felt stable and ready for discharge to home on postoperative day #1. He was to have home therapy, home nursing instructed on wound care, aspirin protocol, and to see me 2 weeks after discharge. For further detailed discharge instructions and departure procedure, see [facility] departure procedure. MD Moi KRAUS 05/22/2018 09:16 [id number] T 05/22/2018 10:40 MCB/MODL Electronically Signed By Ester Elmore M.D. on 22 May 2018 15:57:42 GMT HGB AND HCT Collected: 05/22/2018 Status: F Source: [facility] 3:35 [facility] TYPE CODE TESTS RESULT OUT OF RANGE REFERENCE UNITS LAB HGB 12.9-16.9 g/dL Normal Hemoglobin 14.9 LAB HCT 37.9-49.2 % Normal Hematocrit 43.2 Performed By: #### CHEM8, #### Unless otherwise noted, all testing performed by [address] [place], [place] [address] CLIA: [id number] Cost Control Analyst: Rohan Mora M.D. BASIC METABOLIC PANEL Collected: 05/22/2018 Status: F Source: [facility] 3:35 [facility] TYPE CODE TESTS RESULT OUT OF REFERENCE UNITS RANGE LAB GLU 70-99 mg/dL High Glucose 134 Result Comment: This test result might be falsely depressed or falsely elevated on samples drawn from patients taking Sulfasalazine and Sulfapyridine. Venipuncture should occur prior to taking either of these drugs. LAB BUN 8-25 mg/dL BUN 21 LAB CREA 0.80-1.30 mg/dL Creatinine 1.20 LAB eGFR >60 ml/min/1.73s Low q.m eGFR,NonAfrican-Am erican 59 Result Comment: Non- GFR Calc eGFR is an estimated Glomerular Filtration Rate based on the value of the patient's serum creatinine. In outpatients, eGFR should be used as a helpful tool in screening for CKD. In inpatients or patients with acute renal failure, eGFR represents the GFR at the moment of the draw and should be used with caution. LAB eGFRB ml/min/1.73sq.m eGFR, -Bahraini >=60 Result Comment: GFR Calc LAB CALCM 8.4-10.2 mg/dL Calcium Low 8.1 LAB NA 135-145 mmol/L Sodium 139 LAB K 3.5-5.1 mmol/L Potassium 3.8 LAB CL 98-108 mmol/L Chloride 106 LAB CO2 21-32 mmol/L CO2 25 Performed By: #### CHEM8, #### Unless otherwise noted, all testing performed by [address] [place] [address] CLIA: [id number] Cost Control Analyst: Rohan Mora M.D. KNEE, 1 OR 2 VIEWS Observed: 05/21/2018 Status: F Source: [facility] 12:08 PM [facility] REPOSITORY Final Report Accession No: [id number] Performed: May 21 2018 12:08PM Examination: RIGHT KNEE, 1 OR 2 VIEWS ONLY EXAM: KNEE, 1 OR 2 VIEWS ONLY RIGHT REASON FOR EXAM: Post-Op. TECHNIQUE: 2 views right knee. COMPARISON: CT 04/22/2018. FINDINGS: Postsurgical changes from right total knee arthroplasty are present. There is no evidence of perioperative fracture. Intra-articular gas and fluid as well as skin kristal are expected postsurgical changes. Vascular calcifications are noted. IMPRESSION: Postsurgical changes without acute abnormality, Interpreting Physician: JOHNNY DOHERTY M.D. Trans: sfalk : cc: HGB AND HCT Collected: 05/21/2018 Status: F Source: [facility] 11:56 AM [facility] REPOSITORY TYPE CODE TESTS RESULT OUT OF RANGE REFERENCE UNITS LAB HGB 12.9-16.9 g/dL Normal Hemoglobin 14.3 LAB HCT 37.9-49.2 % Normal Hematocrit 42.5 Performed By: #### HH #### Unless otherwise noted, all testing performed by [address] [place] [id number] CLIA: [id number] Cost Control Analyst: Rohan Mora M.D. SURG Observed: 05/21/2018 Status: F Source: [facility] 12:00 AM [facility] REPOSITORY Patient Name: JUNIOR DRAPER Source Total Arthroplasty, Knee, Right Clinical History Right Knee Arthritis Diagnosis Bone and cartilage with degenerative change. Negative for synovitis. Gross Description The specimen is received in formalin designated RT knee bone and soft tissue and consists of pieces of hyperemic marshall bone and soft tissue measuring 13.2 x 8.4 x 4.3 cm in aggregate. A portion of tibial plateau is identified and the articular surface is coarsely granular. A portion of femoral condyle is identified and the articular surface is coarsely granular. Rare osteophytes are seen. The underlying cancellous bone appears unremarkable. The specimen is submitted for decalcification. Cassettes 1 and 2 contain tour sales representative sections. (ICT/lt) Electronically Signed By Shawn Brown DO Pathologist (Case signed 05/26/2018) CT LOWER EXT W/O Observed: 04/22/2018 Status: F Source: [facility] CONTRAST 12:43 PM [facility] REPOSITORY Final Report Accession No: [id number] Performed: Apr 22 2018 12:43PM Examination: RIGHT CT LOWER EXT W/O CONTRAST EXAM: CT LOWER EXT W/O CONTRAST RIGHT CLINICAL STATEMENT: Right knee osteoarthritis. Robotic surgery planning. COMPARISON: 02/10/2018 radiograph. TECHNIQUE: Axial imaging of the right hip, knee and ankle without contrast. Dose reduction techniques were achieved by using automated exposure control and/or adjustment of mA and/or kV according to patient size and/or use of iterative reconstruction technique. FINDINGS: RIGHT KNEE: No acute osseous abnormality. Anatomic joint alignment. Medial compartment joint space narrowing with subchondral sclerosis, subchondral cystic changes and marginal osteophytes. Marginal osteophytes also demonstrated at the patellofemoral and lateral knee compartments. Superior patellar pole enthesopathy. Small joint effusion. Small Guadalupe's cyst. Surrounding muscle bulk appears normal. Extensive atherosclerotic calcification of the popliteal artery. RIGHT HIP: No acute osseous abnormality. Normal alignment. Enthesopathy of the greater trochanter. No joint effusion. The surrounding muscle bulk appears normal. Atherosclerotic calcification of the femoral artery. RIGHT ANKLE: No acute osseous abnormality. Normal alignment. Scattered arterial vascular calcifications. Soft tissues otherwise appear unremarkable. IMPRESSION: 1. Tricompartmental osteoarthritis of the right knee with small joint effusion and Guadalupe's cyst. 2. No significant degenerative changes of the right hip and ankle. Interpreting Physician: ADELITA VALDEZ D.O. Trans: tk : cc: BASIC METABOLIC PANEL Collected: 04/22/2018 Status: F Source: [facility] 10:00 AM [facility] REPOSITORY TYPE CODE TESTS RESULT OUT OF RANGE REFERENCE UNITS LAB GLU 70-99 mg/dL Normal Glucose 83 Result Comment: This test result might be falsely depressed or falsely elevated on samples drawn from patients taking Sulfasalazine and Sulfapyridine. Venipuncture should occur prior to taking either of these drugs. LAB BUN 8-25 mg/dL Normal BUN 25 LAB CREA 0.80-1.30 mg/dL Normal Creatinine 1.12 LAB eGFR ml/min/1.73s Normal q.m eGFR,NonAfrican-A merican >=60 Result Comment: Non- GFR Calc eGFR is an estimated Glomerular Filtration Rate based on the value of the patient's serum creatinine. In outpatients, eGFR should be used as a helpful tool in screening for CKD. In inpatients or patients with acute renal failure, eGFR represents the GFR at the moment of the draw and should be used with caution. LAB eGFRB ml/min/1.73sq.m eGFR, Normal -Bahraini >=60 Result Comment: GFR Calc LAB CALCM 8.4-10.2 mg/dL Calcium Normal 9.2 LAB NA 135-145 mmol/L Sodium Normal 142 LAB K 3.5-5.1 mmol/L Normal Potassium 4.0 LAB CL 98-108 mmol/L Chloride Normal 105 LAB CO2 21-32 mmol/L CO2 Normal 28 Performed By: #### CBCDIF, CHEM8 #### Unless otherwise noted, all testing performed by [facility] [place] [address] [address] [place], [place] [address] CLIA: [id number] Cost Control Analyst: Rohan Mora M.D. CBC WITH DIFF Collected: 04/22/2018 Status: F Source: [facility] 10:00 AM [facility] REPOSITORY TYPE CODE TESTS RESULT OUT OF RANGE REFERENCE UNITS LAB WBC 3.6-10.4 K/mcL WBC Normal 5.2 LAB RBC 4.0-5.5 M/mcL RBC Normal 5.24 LAB HGB 12.9-16.9 g/dL Normal Hemoglobin 15.5 LAB HCT 37.9-49.2 % Normal Hematocrit 48.7 LAB MCV 82.8-99.3 FL MCV Normal 93.0 LAB MCH 27.7-34.6 pg MCH Normal 29.6 LAB MCHC 32.9-35.5 g/dL Low MCHC 31.9 LAB RDW 10-14.3 % High RDW 14.5 LAB PLT 139-354 K/mcL Platelet Normal Count 186 LAB MPV 6.6-10.8 FL MPV Normal 8.7 LAB NEUT# 1.4-6.8 K/mcL Normal Neutrophil # 3.0 LAB LYMPH# 0.9-3.6 K/mcL Normal Lymphocyte # 1.6 LAB MONO# 0.2-0.6 K/mcL Monocyte Normal # 0.4 LAB EOS# 0-0.5 K/mcL Normal Eosinophil # 0.2 LAB BASO# 0-0.2 K/mcL Basophil Normal # 0.0 LAB SEGNEU% % Normal Segmented Neut % 57.2 LAB LYMP% % Normal Lymphocyte% 30.9 LAB MO% % Monocyte Normal % 8.1 LAB EO% % Normal Eosinophil % 3.3 LAB BA% % Basophil Normal % 0.5 Performed By: #### CBCDIF, CHEM8 #### Unless otherwise noted, all testing performed by [place] [address] CLIA: [id number] Cost Control Analyst: Rohan Mora M.D. Observed: 04/22/2018 Status: F Source: [facility] MRSA SCREEN 10:00 AM [facility] REPOSITORY Test Name: MRSA Screen Culture Status: Final MRSA Screen: Negative Performed By: #### MRSASCR #### Unless otherwise noted, all testing performed by [place] [address] CLIA: [id number] Cost Control Analyst: Rohan Mora M.D. [facility] OFFICE-PROGRESS Observed: 03/27/2018 Status: F Source: [facility] NOTES-PROVIDER 8:34 AM [facility] REPOSITORY CD:[id number] [file] [id number]+[id number]== XR CALCANEUS RIGHT 2+ Observed: 02/10/2018 Status: F Source: [facility] VIEWS (STANDARD) 12:00 AM THREE REPOSITORY X-ray of the right calcaneus 2 views due to pain reveals a plantar calcaneal osteophyte Dictated by: ESTER ELMORE on SatFeb 10, 2018 5:27:44 PM EDT Transcribed by: ESTER ELMORE on SatFeb 10, 2018 5:27:44 PM EDT Finalized by: ESTER ELMORE on SatFeb 10, 2018 5:27:44 PM EDT XR KNEE RIGHT 4+ VIEWS Observed: 02/10/2018 Status: F Source: [facility] (SPECIFY VIEWS IN 12:00 AM THREE REPOSITORY COMMENTS) X-ray of the right knee 4 views due to pain standing AP 45?? PA standing lateral merchant film reveals severe end-stage medial compartment degenerative arthrosis with acquired varus deformity with osteophytes in the medial compartment as well as near end-stage patellofemoral degenerative changes Dictated by: ESTER ELMORE on SatFeb 10, 2018 5:28:10 PM EDT Transcribed by: ESTER ELMORE on SatFeb 10, 2018 5:28:10 PM EDT Finalized by: ESTER ELMORE on SatFeb 10, 2018 5:28:10 PM EDT XR KNEE RIGHT 4+ VIEWS Observed: 02/10/2018 Status: F Source: [facility] (SPECIFY VIEWS IN 12:00 AM THREE REPOSITORY COMMENTS) X-ray of the right knee 4 views due to pain standing AP 45?? PA standing lateral merchant film reveals severe end-stage medial compartment degenerative arthrosis with acquired varus deformity with osteophytes in the medial compartment as well as near end-stage patellofemoral degenerative changes Dictated by: ESTER ELMORE on SatFeb 10, 2018 5:28:10 PM EDT Transcribed by: ESTER ELMORE on SatFeb 10, 2018 5:28:10 PM EDT Finalized by: ESTER ELMORE on SatFeb 10, 2018 5:28:10 PM EDT PHONE MSG Observed: 01/16/2018 Status: C Source: [facility] 12:06 PM [facility] REPOSITORY From: Tere Boss MA To: JACI LOYA MD; Sent: 01/16/2018 11:49:20 EDT Subject: Med Management On hold pending signature Order:metoprolol (Metoprolol Tartrate 25 mg oral tablet) 0.5 tabs ORAL DAILY Qty: 45 tabs Refills: 1 Substitutions Allowed Route To Pharmacy - [facility]/pharmacy #1013 Caller is: Medication Refill Request: [facility] From: JACI LOYA MD Sent: 01/16/2018 12:06:17 EDT Subject: RE:Med Management Approved Order:metoprolol (Metoprolol Tartrate 25 mg oral tablet) 0.5 tabs ORAL DAILY Qty: 45 tabs Refills: 1 Substitutions Allowed Route To Pharmacy - [facility]/pharmacy #1013 Signed by JACI LOYA MD 01/16/2018 12:06:00 PHONE MSG Observed: 12/02/2017 Status: C Source: [facility] 1:34 PM [facility] REPOSITORY From: Tere Boss MA To: JACI LOYA MD; Sent: 12/02/2017 10:48:06 EST Subject: Med Management On hold pending signature Order:lisinopril (lisinopril 5 mg oral tablet) 1 tabs ORAL DAILY Qty: 90 tabs Refills: 1 Route To Pharmacy - [facility]/pharmacy #1013 On hold pending signature Order:simvastatin (simvastatin 10 mg oral tablet) 1 tabs ORAL QHS Qty: 90 tabs Refills: 1 Route To Pharmacy [facility]/pharmacy #1013 Caller is: Medication Refill Request: From: JACI LOYA MD Sent: 12/02/2017 13:34:39 EST Subject: RE:Med Management Approved Order:simvastatin (simvastatin 10 mg oral tablet) 1 tabs ORAL QHS Qty: 90 tabs Refills: 1 [facility] Signed by JACI LOYA MD 12/02/2017 13:34:00 Approved Order:lisinopril (lisinopril 5 mg oral tablet) 1 tabs ORAL DAILY Qty: 90 tabs Refills: 1 [id number] Signed by JACI LOYA MD 12/02/2017 13:34:00 ALLERGIES ALLERGIES DATE TYPE / CODE NAME / CODE REACTION SEVERITY SOURCE 10/06/2018 Drug No Known Unknown [facility] Allergy/416 Allergies/V33025 Hospital 107899(SNOM 0388(RXNORM) Repository ED CT) Drug NO KNOWN [facility] Class/33197 ALLERGIES Repository 1003(SNOMED CT) ENCOUNTERS ENCOUNTERS ADMIT/DISCHARGE ACCOUNT NUMBER ADMITTING ENCOUNTER LOCATION SOURCE CLASS 10/20/2018 [id number] [facility] ding:RAD Repository 10/08/2018/10/08/[id number] ding:SDCRoom Repository : AC10 10/06/2018/10/06/20 [id number] Jaci Loya [address] ding:.[facility] Repository 10/06/2018 [id number] [facility] ding:RAD.[facility] Repository URE 10/06/2018 [id number] Ambulatory [address] [place] [address] Repository 08/11/2018/08/11/20 [id number] Ambulatory Building:[place] [address] SPORTSMEDAMB Three ER Repository 07/29/2018/07/29/20 [id number] Ambulatory Building:[place] [address] SPORTSMEDSTU Three MBO Repository 06/30/2018/06/30/20 [id number] Ambulatory Building:[place] [address] SP[facility]MEDAMB Three ER Repository 06/30/2018 [id number] Vince Elmore [facility] Repository 06/03/2018 [id number] Ambulatory Building:[facility] Three Repository 06/02/2018/06/02/20 [id number] Ambulatory Building:[place] [address] SPORTSMEDAMB Three ER Repository 05/30/2018/05/30/20 [id number] Kodz, [place] [facility] [place] [address] [facility] ding:[facility] Repository 05/30/2018 [id number] Ambulatory [address] [place] [address] Repository 05/21/2018/05/21/20 [id number] Ambulatory Building:[place] [address] SPORTSMEDAMB Three ER Repository 05/21/2018/05/22/20 [id number] Ramírez, Ambulatory [place] [address] [address] Ortiz lding:B41 M[facility] and [facility]: Aston B41 4118Bed: [place] [id number] Repository 05/19/2018/06/06/20 [id number] Ambulatory Building:[address] Three Repository 05/13/2018/05/13/20 [id number] RAMÍREZ, Ambulatory Building:[place] [address] ESTER MADRIGAL [facility] Repository 04/22/2018 [id number] Ramírez, Ambulatory [facility] Repository 04/22/2018 [id number] Ramírez, Ambulatory [facility] Repository 04/03/2018 [id number] Ambulatory Building:[facility] Repository 03/27/2018 [id number] Ambulatory [facility]IMSVBuild [facility] ing:AMBIMSV [facility] Repository 03/27/2018/03/27/20 [id number] Ambulatory AMBIMSVBuild [place] [address] ing:AMBIMSVR General oom: [address] Center Repository 02/27/2018/02/28/20 [id number] Ramírez, Ambulatory [place] [address] [address] [facility] Repository 02/24/2018/02/25/20 [id number] Ambulatory Building:[place] [address] SPORTSMEDAMB Three ER Repository 02/10/2018/02/11/20 [id number] Ambulatory Building:[place] [address] SPORTSMEDAMB Three ER Repository 01/16/2018 [id number] Ambulatory AMBIMMHBuild [facility] ing:[facility] Repository 12/02/2017 [id number] Ambulatory AMBIMMHBuild [facility] ing:[facility] Repository 04/24/2017/09/29/20 [id number] Ambulatory AMBIMSVBuild [facility] 16 ing:[facility] Repository PAYERS PAYERS ENCOUNTER GUARANTOR PAYER SUBSCRIBER SOURCE 10/20/2018 JUNIOR Petrona [id number] Primary JUNIOR E [place] Insurance:AETNA BARONDOB: [facility] Number: [id number] Hospital 235[address]Ztu: (419) [id number] Repository [phone] () Date:4010-60-58UV [address] [place] [address]NI: 10/20/2018 Secondary NOT GIVENUNK Young Insurance:SELF PAY [facility] Number: Effective Repository Date:2018-10-20 10/08/2018 JUNIOR E [id number] Primary JUNIOR E [place] Insurance:AETNA BARONDOB: [facility] Number: [id number] Hospital [id number]: (419) [id number] Repository [phone] () Date:9712-97-68GV [address] [place] [address]JR: 10/08/2018 Secondary NOT GIVENUNK [place] Insurance:SELF PAY [facility] Number: Effective Repository Date:2018-10-06 10/06/2018 JUNIOR E [id number] Primary JUNIOR E [place] Insurance:AETNA BARONDOB: [facility] Number: [id number] Hospital [address]Thw: (419) [id number] Repository [phone] () Date:4458-21-57PQ [address] [place] [address]BK: 10/06/2018 Secondary NOT GIVENUNK [place] Insurance:SELF PAY [facility] Number: Effective Repository Date:2018-10-02 10/06/2018 JUNIOR WEIRICHDOB: Primary JUNIOR [facility] Insurance:[facility] [id number] [facility] Number: COUNTRY CLUB Repository [facility] MD [id number] [facility] MD [id number]: Date:Plan Name:Health [id number]: (HP) (HP) 08/11/2018 JUNIOR E Primary JUNIOR E [facility] WEIRICHDOB: Insurance:AETNA [facility]: Three Repository MANAGED [id number] [place] MEDICAREPolicy [place] Number: [facility] MD [address]Nyc: (419) [id number]: (HP) Date:3394-68-32GF [phone] (HP) [place]11[address], [place] [address]WU: 07/29/2018 JUNIOR E Primary JUNIOR E [facility] WEIRICHDOB: Insurance:AETNA LIUDMILARICHDOB: Three Repository MANAGED [id number] [place] MEDICAREPolicy [place] Number: [facility] MD [address]Ums: (419) [id number]: (HP) Date:1979-84-33TT [phone] (HP) [place], [place] [address]RV: 06/30/2018 JUNIOR E Primary JUNIOR E [facility] WEIRICHDOB: Insurance:AETNA BARONDOB: Three Repository MANAGED [id number] [place] MEDICAREPolicy [place] Number: DONALDGULFPORTDERIK [place] [address]Rvy: (419) [id number]: (HP) Date:8394-27-73HP [phone] (HP) [address]79[address] [address]NC: 06/30/2018 Primary JUNIOR E [facility] Insurance:AetnaJessi WEIRICHDOB: [place] and Number: [id number] [facility] HospitalBJ4FKCEffective [place]TRY CLUB Repository Date:Plan [place], [place] Name:HealthElectronic [address] PayJIE Kim [phone]: 06/03/2018 JUNIOR E Primary JUNIOR E [facility] WEIRICHDOB: Insurance:AETNA BARONDOB: Three Repository MANAGED [id number] COUNTRY CLUB MEDICAREPolicy [place] Number: [facility] MD [address]Aca: (419) [id number]: (HP) Date:6431-65-94KJ [phone] (HP) [address]369[address] [address]PA: 06/02/2018 JUNIOR E Primary JUNIOR E [facility] WEIRICHDOB: Insurance:AETNA BARONDOB: Three Repository MANAGED [id number] [place] MEDICAREPolicy [place] Number: [place], [place] [address]Kfz: (419) [id number]: (HP) Date:7506-43-83ZI [phone] (HP) 486[address]LX [place] [address]SX: 05/30/2018 JUNIOR E Primary JUNIOR E [place] WEIRICHDOB: Insurance:AetnaPolicy [facility]: Hospitals Number: [id number] Repository COUNTRY [id number] [place]TRY [place], [place] Date:Plan Name:[place], [place] [id number]: [id number]: (HP) (HP) 05/21/2018 JUNIOR E Primary JUNIOR E [facility] WEIRICHDOB: Insurance:AETNA BARONDOB: Three Repository MANAGED [id number] [place] MEDICAREPolicy [place] Number: ELBA [place] [id number]: (419) [id number]: (HP) Date:0232-11-16UI [phone] (HP) 2900[address], [place] [address]MG: 05/21/2018 Primary JUNIOR E [facility] Insurance:AetAPI HealthcareRICHDOB: [place] and Number: [id number] [facility] HospitalBJ4FKCEffective COUNTRY [facility] Repository Date:Plan [place], [place] Name:HealthElectronic [address] [place], [place] [phone]: 05/19/2018 JUNIOR E Primary JUNIOR E [facility]: Insurance:AETNA BARONDOB: Three Repository MANAGED [id number] [place] CLUB MEDICAREPolicy [place] Number: MANJINDER ARREOLA [address]Dfc: (419) [id number]: (HP) Date:2183-09-77OF [phone] (HP) [address] [place] [address]GK: 05/13/2018 JUNIOR E Primary JUNIOR E [facility] WEIRICHDOB: Insurance:AETNA BARONDOB: Three Repository MANAGED [id number] [place] CLUB MEDICAREPolicy [place] Number: ELBA [place] [address]Bnh: (419) [id number]: (HP) Date:6859-04-28KO [phone] (HP) 696072W[place] [address]QO: 05/13/2018 Secondary JUNIOR E [facility] Insurance:AETNA WEIRICHDOB: Three Repository MANAGED [id number] MED[facility]EDignity Health [facility] Centericy [facility]TRY CLUB Number: ELBA MD [id number]: (419) Date:7077-77-79GQ [phone] (HP) 171917XA [place] [address]MM: 04/22/2018 Primary JUNIOR E [facility] Insurance:AetnaPolicy WEIRICHDOB: [place] and Number: [id number] [facility] HospitalJ4FKCEffective [place]UB Repository Date:[place], [place] Name:HealthElectronic [address] [place], [place] [id number]: 04/22/2018 Primary JUNIOR E [facility] Insurance:AetnaPolicy WEIRICHDOB: [place] and Number: [id number] [facility] HospitalJ4FKCEffective [place]UB Repository Date:[place], [place] Name:HealthElectronic [address] [place], [place] [address]OA: 04/03/2018 JUNIOR E Primary JUNIOR E [facility] WEIRICHDOB: Insurance:AETNA WEIRICHDOB: Three Repository MANAGED [id number] COUNTRY [facility] MEDICAREDignity Health [facility] Medical Centericy [place], [place] Number: ELIEZERCLARENCEDERIKMANJINDER [id number]: (419) [phone] (HP) Date:2014-11-04 - 4484-39-28WA [address] [place] [address]LA: 04/03/2018 Secondary JUNIOR E [facility] Insurance:AETNA WEIRICHDOB: Three Repository MANAGED [id number] MEDICAREDignity Health [facility] Medical Centericy [place]TRY CLUB Number: ELIEZERNANCY MD [id number] Date:8395-11-16ZD [address] [address]ZM: 02/27/2018 Primary JUNIOR E [facility] Insurance:AetnaPolicy WEIRICHDOB: [place] and Number: [id number] [facility] [id number] COUNTRY CLUB Repository Date:Plan [place], [place] Name:HealthElectronic [address] PayJIE Kim [phone]: 02/24/2018 JUNIOR E Primary JUNIOR E [facility] WEIRICHDOB: Insurance:AETNA WEIPIEDADDOB: Three Repository MANAGED [id number] COUNTRY CLUB MEDICAREPolicy [place], [place] Number: LEONARD [place] [address]Acd: (434) [id number] [phone] (HP) Date:4524-78-88TF [address]Y[place] [address]CA: 02/24/2018 Secondary JUNIOR E [facility] Insurance:AETNA WEIRICHDOB: Three Repository MANAGED [id number] MEDICAREPolBacterioscany COUNTRY CLUB Number: ELIEZERNANCY MD [id number] Date:4619-83-17LU [address]JIE [place] [address]HU: 02/10/2018 JUNIOR E Primary JUNIOR E [facility] WEIRICHDOB: Insurance:AETNA WEIRICHDOB: Three Repository MANAGED [id number] COUNTRY CLUB MEDICAREPolicy [place] Number: LEONARD [place] [id number]: (420) [id number] [phone] (HP) Date:6081-07-41LF [address] [address]KS: 02/10/2018 Secondary JUNIOR E [facility] Insurance:AETNA WEIRICHDOB: Three Repository MANAGED [id number] MEDICAREPolUniverstar Science & Technology COUNTRY CLUB Number: LEONARD MD [id number] Date:9232-44-88HW [address]X [place] [address]CZ:
== END ==
PROVIDERS: Referring Provider Urology; Visit Provider Urology
DX: N20.0 Calculus of kidney (principal)
CPT/HCPCS: 74018

== ENCOUNTER 2018-10-08 14:51 | Day surgery (SDC) | payer MEDICARE, SELFPAY ==
[2018-10-08 15:13] VITALS: BP 146/99; PULSE 64; RESP 16; TEMP 36.7; O2SAT 100; BMI 29.2
--- NOTE | 2018-10-08 16:46 | DCINST_ITS ---
Discharge Diet: Light diet - advance as tolerated Discharge Activity: Return to Normal Activity, May not drive while taking narcotic pain medications. Suture Line Care: Avoid Pulling/Pushing, Avoid Pinching/Bending Instructions: Shock Wave Lithotripsy Allergies/Adverse Reactions: Allergies No Known Allergies Allergy (Verified 10/06/18 14:41) Medications to take at Discharge Ascorbic Acid [Vitamin C] 1,000 mg PO DAILY@0800 02/27/16 Aspirin [Aspirin, Baby] 81 mg PO MOWEFR 02/27/16 Cholecalciferol (VIT D3) [Vitamin D] 5,000 unit PO DAILY 02/27/16 Co Q10 200 [Co Q-10] 200 mg PO BID 02/27/16 Cyanocobalamin (Vitamin B-12) [Vitamin B12] 5,000 mcg PO DAILY 02/27/16 Glucosam/Chondr-MSM#6/Manganes [Glucosamine-Chondroitin Sftgl] 1 each PO DAILY 02/27/16 Lisinopril [Zestril] 5 mg PO DAILY 02/27/16 Simvastatin [Zocor] 10 mg PO QHS 02/27/16 Tamsulosin HCl [Flomax] 0.4 mg PO DAILY #30 capsule 02/29/16 [place]-3 Fatty Acids [Fish Oil] 500 mg PO DAILY 03/26/17 Docusate Sodium [Colace] 100 mg PO BID #20 cap 10/08/18 Oxycodone HCl/Acetaminophen [Percocet 5/325] 1 tab PO Q4H PRN PRN 5 Days #20 tab 10/08/18 The following prescriptions were given: Oxycodone HCl/Acetaminophen [Percocet 5/325] 1 tab PO Q4H PRN PRN 5 Days #20 tab PRN Reason: Pain Docusate Sodium [Colace] 100 mg PO BID #20 cap Primary Care Physician: [facility] Doctor,Out of [Primary Care Provider] - Test Results: Test results from this visit will be discussed in further detail at your follow- up appointment, if applicable. Please Follow Up With: Rodney Reagan MD When: in 2 weeks, please call to make an appointment. juan pablo owusu
[2018-10-08] MEDS: Cefazolin 2 GM in 0.9% Normal Saline 100 ML IV (16:50)
--- NOTE | 2018-10-08 17:53 | PCM.OPRPT ---
Report of Operation Date of Procedure: 10/08/18 Pre-Operative Diagnosis: Left kidney stone Post-Operative Diagnosis: Same Surgery/Procedure Performed:: Left ESWL Description of Surgical Findings:: 73-year-old male taken back to the operating room at the smooth induction of general anesthesia he was placed supine on the table we then positioned the patient under the F2 focal point of the lithotripter machine we could see the stone by moving the therapy had around we then started with shockwave lithotripsy at a rate of 60 power up to slowly work her way up to 7. After thousand shocks we checked and the stone is been breaking up really well we continue shockwave therapy at 2000 shockwaves is hard to see the stone anymore we then increased the rate lower the power and then get a total of 3000 shockwaves to the stone the stone appeared to fragment completely can see any other fragments visible under x-ray therefore no stent was placed patient anesthesia was reversed and currently is being taken back to PACU. Type of Anesthesia:: General - Admit VTE Documentation VTE Present on Admission: No VTE Mechan Device Prophylaxis: SCD's
[2018-10-08 18:01] VITALS: BP 145/94; BP 146/99; PULSE 82; RESP 18; TEMP 36.1; O2SAT 95
[2018-10-08] MEDS: Ketorolac 15 MG/ML Vial IV (18:08)
[2018-10-08 18:15] VITALS: BP 143/94; BP 146/99; PULSE 72; RESP 18; O2SAT 94
[2018-10-08 18:28] VITALS: BP 142/89; BP 146/99; PULSE 72; RESP 18; TEMP 36.5; O2SAT 100
[2018-10-08 19:17] VITALS: BP 146/99
== END 2018-10-08 19:19 | disposition home or self-care (01) ==
LOC: SDC 14:52 → AC 14:53
PROVIDERS: Referring Provider Urology; Visit Provider Urology
PROC: (CPT 50590; principal; 2018-10-08 16:35)
DX: N20.0 Calculus of kidney (principal); E78.00 Pure hypercholesterolemia, unspecified; Z79.899 Other long term (current) drug therapy; Z79.82 Long term (current) use of aspirin; I10 Essential (primary) hypertension; N40.0 Benign prostatic hyperplasia without lower urinary tract symptoms
CPT/HCPCS: 50590; J7120; J2405

== ENCOUNTER → 2018-10-20 13:25 | Outpatient (CLI) | payer MEDICARE, SELFPAY ==
[2018-10-08 15:13] VITALS: BMI 29.2
--- NOTE | 2018-10-20 13:50 | RAD_ITS ---
STUDY: X-RAY - ABDOMEN/PELVIS REASON FOR EXAM: Male, 73 years old. Kidney stones. TECHNIQUE: Single AP view of the abdomen / pelvis. COMPARISON: Numerous previous exams including the most recent of 10/06/2018.. FINDINGS: No definite abnormal calcifications seen on this exam, although small stones could be missed by overlying bowel contents. There is an unremarkable bowel gas pattern. There is no demonstrated free abdominal air. The visualized liver, spleen and kidneys are grossly normal in size and morphology. Normal soft tissue structures. There are diffuse degenerative changes of the visualized lumbar spine. RAD/Abdomen Single View IMPRESSION: No definite renal or ureteral stones. Electronically Signed: Leo Skaggs MD at 14:28 EST , Service support ,
--- OUTSIDE RECORDS SUMMARY | 2019-01-22 04:31 | XMS RPT_ITS ---
:1945 Author Organization OHIP Support Name Relationship Address Phone R Unavailable Unavailable Unavailable WEIPIEDAD CHAITANYA Unavailable [address] + [place] [address] R Unavailable Unavailable Unavailable BARON CHAITANYA Unavailable [address] + [place] [address] R Unavailable Unavailable Unavailable BARON CHAITANYA Unavailable [address] + [place] [phone] BARON, CHAITANYA Unavailable Unavailable + BARON CHAITANYA Unavailable [address] Unavailable [place] [id number] BARON, CHAITANYA Unavailable [address] Unavailable [place] [id number] BARON, CHAITANYA Unavailable [address] [place] [place] [address] BARON, CHAITANYA Unavailable [address] + [place] [address] BARON, CHAITANYA Unavailable [address] [place] [address] BARON, CHAITANYA Unavailable [address] Unavailable [place] [id number] BARON, CHAITANYA Unavailable Unavailable + BARON CHAITANYA Unavailable [address] Unavailable [place] [phone] BARON, CHAITANYA Unavailable [address] + [place] BARON, CHAITANYA Unavailable [address] [place] [address] BARON, CHAITANYA Unavailable [address] + [place] BARON, CHAITANYA Unavailable [address] + [place] [address] BARON, CHAITANYA Unavailable [address] + [place] [id number] BARON, CHAITANYA Unavailable [address] + [place] [phone] BARON, CHAITANYA Unavailable Unavailable + BARON CHAITANYA Unavailable Unavailable + WEIPIEDAD, CHAITANYA Unavailable [address] + [place] [address] WEIPIEDAD, CHAITANYA Unavailable [address] + [place] [address] BARON, CHAITANYA Unavailable [address] + [place] [address] BARON, CHAITANYA Unavailable Unavailable + WEIPIEDAD, CHAITANYA Unavailable Unavailable + BARON, CHAITANYA Unavailable [...] Unavailable KODZ, JACI C. Primary Care Unavailable Kodz, [place] C Admitting Unavailable Kodz, [place] C Attending Unavailable Kodz, [place] C Primary Care Unavailable Kodz, [place] C Admitting Unavailable Kodz, [place] C Attending Unavailable Kodz, Jaci C Primary Care Unavailable Dr. Ester Elmore Admitting Unavailable Ramírez, Dr. Ester Girard Attending Unavailable Ramírez, Dr. Ester Girard Admitting Unavailable Ramírez, Dr. Ester Girard Attending Unavailable Ramírez, Dr. Ester Girard Admitting Unavailable Ramírez, Dr. Ester Girard Attending Unavailable Ramírez, Dr. Ester Girard Admitting Unavailable Ramírez, Dr. Ester Girard Attending Unavailable Dr. Ester Elmore Admitting Unavailable Dr. Ester Elmore Attending Unavailable Merary, Deyvi Attending Unavailable Merary, Deyvi Referring Unavailable ABA BERG Primary Care Unavailable Merary, Deyvi Attending Unavailable Merary, Deyvi Referring Unavailable ABA BERG Primary Care Unavailable Merary, Deyvi Attending Unavailable Merary, Deyvi Referring Unavailable ABA BERG Primary Care Unavailable JACI LOYA MD Attending Unavailable JACI LOYA MD Primary Care Unavailable JACI LOYA MD Primary Care Unavailable JACI LOYA MD Primary Care Unavailable JACI LOYA MD Attending Unavailable JACI LOYA MD Primary Care Unavailable JACI LOYA MD Attending Unavailable JACI LOYA MD Primary Care Unavailable PROBLEMS PROBLEMS DATE TYPE CONDITION / CODE ATTENDING STATUS SOURCE 10/08/2018 Unknown Z87.442 - Personal Rodney Reagan Active [facility]p history of urinary [facility] calculi / Hospital Z87.442(ICD-10) Repository 10/06/2018 Unknown N20.0 - Calculus of Rodney Reagan Active [facility]p kidney / [facility] N20.0(ICD-10) Hospital Repository 07/29/2018 Admitting Unknown / BRUNICARD [facility] [place] [employer] diagnosis UNK(Unknown) AUDRA MCCOLLUME Three Repository 06/30/2018 Admitting 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 ESTER ROHAN Three joint / Repository Z96.651(ICD-10) 05/13/2018 Admitting Essential (primary) KAMINI MUNGUIA [facility] diagnosis hypertension / Three I10(ICD-10) Repository 05/13/2018 Admitting Benign prostatic KAMINI MUNGUIA [facility] diagnosis hyperplasia without Three lower urinary tract Repository symptoms / N40.0(ICD-10) 05/13/2018 Admitting Hyperlipidemia, KAMINI MUNGUIA [facility] diagnosis unspecified / Three E78.5(ICD-10) Repository 05/13/2018 Admitting Encounter for other KAMINI MUNGUIA [facility] diagnosis preprocedural Three examination / Repository Z01.818(ICD-10) 05/13/2018 Admitting Encounter for KAMINI MUNGUIA [facility] diagnosis preprocedural Three cardiovascular Repository examination / Z01.810(ICD-10) 02/10/2018 Admitting Unilateral primary RAMÍREZ, 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, ESTER Vieyra right knee / Repository M17.11(ICD-10) 02/10/2018 Admitting Pain in right foot / RAMÍREZ, Active [facility] diagnosis M79.671(ICD-10) ESTER Vieyra Repository 02/10/2018 Admitting Pain in right knee / RAMÍREZ, Active [facility] diagnosis M25.561(ICD-10) ESTER Vieyra Repository 02/10/2018 Admitting Plantar fascial RAMÍREZ, 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) Repository PROCEDURES PROCEDURES No Procedure Records FoundRESULTS RESULTS ABDOMEN SINGLE VIEW Observed: 10/20/2018 Status: F Source: [place] 1:45 PM [facility] [place] [facility] Imaging Services [address] [facility] [facility] [place] [address] Abdomen Single View MR#: [id number] Acct: [id number] Name: JUNIOR DRAPER Rep #: [id number] : 1945 73 From: Leo Skaggs MD PCP: OUT OF TOWN DOCTOR Status: REG CLI Study: Abdomen Single View Date of Exam: 10/20/18 Exam# [id number] Ordering Dr: Rodney Reagan MD STUDY: X-RAY [...] Rodney Reagan MD; OUT OF TOWN DOCTOR Equipment Worker: Signed AMB OFFICE-PROGRESS Observed: 10/16/2018 Status: F Source: [facility] NOTES-PROVIDER 3:08 PM [facility] REPOSITORY CD:[id number]:[id number]slZpYYiyOx9ul6zgQX81rq2oMjZdAj4+HAOfCA44uAlylnGq [file] PSJfRk CD:[id number]:[id number]rlJfNiJXncAtSuPTPcUxXUKx0Hts29kJCvIaytj3Uhnb79 T2Sqnk4PUsrAMFlxyHGnD5gyb0J4BcClXQ4fB37ljMBbyYh6EO8gWOHhEM7sdtLpeEChMLCjCrSx gdLdjfE6lCHdVOECHI8WZJaOYNHWBtUhUKZeBtNioGs3vGwpMMYpAVi8NvOyMHJuqHO5Iy25ZCT8 SDg5YL1BLUJLVOLaBhGqXFITRR03DaPyYxL6DAsjXEHjXMH9oQgySGI4WNl6DHxmCHDhjAhnPMGn nYdabHEkNBdtQx0qVEO6DuWsQU94IK9vjpmhpm6dQTO4NkWlCO83ThI0iDovwcmyEJ7nZGxsOX1m D4YwM0ZkWF44KGJlz30oWdy7hUKvu15vBbbdMCZlDZ5wV4idn1B4BqUpDH5sQ62lmLFuoFr7KC3w QFImKxCiizCshbY8rZDwIQJVZM4PDBtYNRUsXCS4LY01xVG8aTA7XqK8Hwq4GoHlOCwwWWMsSFQk SLStDuQrEgHgMT69AeXmGASuSIQlBNN7SpYiRUV1JjwVPz0Rl1ArDNEvQA2ztFVqSvbtALg0OabV VVo6J6Eztt3EUCfJHB4fjYT+AxbJAMx4RFi9RHDiGVKyEJIfRUDrF8Sqv56gNQLqRWWjEFKgVGGb ZKYcLQoaw8SzuVKkEIQ1ZSt2TJPewxTim2FsTapaYbBrAEphEHS5oL1iC90nFI1wDL8IDiVmKSSg QmquLgTfxUE8Fc5HWHO9AgiVOI4KBOUVORX4NJHhJBF0KC1YAPtWKctQSUT1XjWlSQJ6eJexKSCv QHJfaZ2yHkV3bYl4CHOdg4VfEVy9OG5jyfG5Qi79c1CumnUjjSUrjt5yQHMqDMR1dS2tOToaiRio Bryn+QSQzIC5dt5T6kYB6CoMnkoSxy4IsF4p6AkXfg6vuUmL0LIf9DZFdA34sIICzf394EKUzBHWx [file] sKT1YrXtwC9phangBwuyCYm3YiwVItmkFf2ozE33E7h5oGj+ OPERATIVE REPORT Observed: 10/08/2018 Status: F Source: [place] 5:55 PM [facility] [place] [facility] Medical Records Department [address] [place] [address] Operative Report 10/08/18 1753 MR#: [id number] Acct: [id number] Name: JUNIOR DRAPER Rep #: [id number] : 1945 73 From: Rodnye Reagan MD PCP: OUT OF TOWN DOCTOR Status: REG [facility] Y Location: [place] [address] Report of Operation Date of Procedure: 10/08/18 [...] No VTE Mechan Device Prophylaxis: SCD's 10/08/18 5165 <Electronically signed by Rodney Reagan MD> Date Rodney Reagan MD CC: JACI LOYA; Rodney Reagan MD; OUT OF TOWN DOCTOR Signed DISCHARGE INSTRUCTION Observed: 10/08/2018 Status: F Source: [place] 4:46 PM [facility] [place] [facility] Medical Records Department [address] [place] [address] Instructions for Home/Discharge Instructions 10/08/18 1645 MR#: [id number] Acct: [id number] Name: JUNIOR DRAPER Rep #: [id number] : 1945 73 From: Rodney Reagan MD PCP: OUT OF TOWN DOCTOR Status: REG TNC Discharge Diet: Light diet - advance as [...] 0.4 mg PO DAILY #30 capsule 02/29/16 [place]-3 Fatty Acids [Fish Oil] 500 mg PO [...] PO BID #20 cap Primary Care Physician: [facility] Doctor,Out of [Primary Care Provider] - Test Results: Test results from this visit will be discussed in further detail at your follow-up appointment, if applicable. Please Follow Up With: Rodney Reagan MD When: in 2 weeks, please call to make an appointment. w xray 10/08/18 1646 <Electronically signed by Rodney Reagan MD> Date Rodney Reagan MD CC: JACI LOYA; OUT OF [facility] DOCTOR CMP Collected: 10/06/2018 Status: F Source: [facility] 11:[address] [facility] REPOSITORY TYPE CODE TESTS RESULT OUT OF RANGE REFERENCE UNITS LAB [id number](L 70-99 mg/dL OINC) Glucose Normal Lvl 85 LAB 95969276(L 6-23 mg/dL OINC) BUN Normal 21 LAB 2389190(LO 0.5-1.3 mg/dL INC) Normal Creatinine 1.0 LAB 00624561(L 8.6-10.3 mg/dL OINC) Calcium Normal Lvl 9.0 LAB 14148311(L 136-145 mEq/L OINC) Sodium Normal Lvl 140 LAB 27846238(L 3.5-5.3 mEq/L OINC) Normal Potassium Lvl 4.2 LAB 75441041(L 98-107 mEq/L OINC) Chloride Normal 106 LAB 09974345(L 21.0-32.0 mEq/L OINC) CO2 Normal 31.0 LAB 77861246(L 33-136 Int._Unit/ OINC) L Alk Phos Normal 91 LAB 23463399(L 0.00-1.20 mg/dL OINC) Bili Normal Total 1.10 LAB 75559299(L 3.4-5.0 gm/dL OINC) Albumin Normal Lvl 4.1 LAB 37721816(L 6.4-8.2 gm/dL OINC) Total Normal Protein 6.4 LAB 75779468(L 10-52 Int._Unit/ OINC) L ALT Normal 17 LAB 69990360(L 9-39 Int._Unit/ OINC) L AST Normal 22 LAB 18736994(L 5.4-30.0 ratio OINC) Normal BUN/Creat Ratio 21.0 LAB 25344567(L 10-20 mEq/L OINC) Low AGAP 7 LAB 98801800(L 2.0-4.0 G/DL OINC) Globulin Normal 2.0 LAB 61920925(L 1.1-1.9 ratio OINC) A/G Normal Ratio 1.8 Performed By: #### [id number] #### SANDRA [employer] [facility] [place] [address] EGFR Collected: 10/06/2018 Status: F Source: [facility] 11:17 AM [facility] REPOSITORY Order Comment: Order added by Discern Expert. TYPE CODE TESTS RESULT OUT OF RANGE REFERENCE UNITS LAB 07930332(LO mL/min/1.73 INC) m2 Normal eGFR >60 LAB 22047803(LO mL/min/1.73 INC) m2 Normal eGFR AA >60 Performed By: #### [id number] #### SANDRA [employer] [address] [place] [address] CRP Collected: 10/06/2018 Status: F Source: [facility] 11:17 AM [facility] REPOSITORY TYPE CODE TESTS RESULT OUT OF RANGE REFERENCE UNITS LAB 29007854(LO 0.00-1.00 mg/dL INC) Normal CRP 0.48 Performed By: #### [id number] #### SANDRA [employer] [address] [place] [address] LIPID PROFILE Collected: 10/06/2018 Status: F Source: [facility] 11:17 AM [facility] REPOSITORY TYPE CODE TESTS RESULT OUT OF RANGE REFERENCE UNITS LAB 56484448(LO 0-199 mg/dL INC) Normal Chol 152 Result Comment: TOTAL CHOLEESTEROL: <200 NORMAL 200 - 239 BORDERLINE HIGH >240 HIGH LAB 35702056(LOINC) 40-60 mg/dL Normal HDL 49 LAB 99926594(LOINC) 0-130 mg/dL Normal LDL 88 Result Comment: <100 OPTIMAL 100-129 NEAR / ABOVE OPTIMAL 130-159 BORDERLINE HIGH 160-189 HIGH >190 VERY HIGH CALC LDL NOT VALID WHEN TRIGLYCERIDE IS >400 MG/DL LAB 67302971(LOINC) 0-149 mg/dL Normal Trig 75 Result Comment: AGE DESIRABLE BORDERLINE HIGH 91 D - 9 Y 0 - 74 75 - 99 > 100 10 - 19 Y 0 - 89 90 - 129 > 130 20 -24 Y 0 - 114 115 - 149 > 150 > 25 0 - 149 150 - 199 200 - 499 LAB 75204339(LOINC) 0-40 mg/dL Normal VLDL 15 Performed By: #### [id number] #### SANDRA [employer] [address] [place] [address] ABDOMEN SINGLE VIEW Observed: 10/06/2018 Status: F Source: [place] 9:14 AM [facility] [place] [facility] Imaging Services [address] [place] [address] Abdomen Single View MR#: [id number] Acct: [id number] Name: JUNIOR DRAPER Rep #: [id number] : 1945 M 73 From: Antonino Blanchard MD PCP: OUT OF TOWN DOCTOR Status: REG CLI Study: Abdomen Single View Date of Exam: 10/06/18 Exam# [id number] Ordering Dr: Rodney Reagan MD STUDY: X-RAY [...] Rodney Reagan MD; OUT OF TOWN DOCTOR Equipment Worker: Signed PHONE MSG Observed: 09/02/2018 Status: F Source: [facility] 11:59 AM [facility] REPOSITORY Entered by JACI LOYA MD on September 02, 2018 11:59:34 EDT From: JACI LOYA MD To: [facility]/pharmacy #[id number] Sent: 09/02/2018 11:59:34 EDT Subject: Medication Management Submitted: Complete:simvastatin (simvastatin 10 mg oral tablet) Signed by JACI LOYA MD 09/02/2018 11:59:00 Submitted: Complete:lisinopril (lisinopril 5 mg oral tablet) Signed by JACI LOYA MD 09/02/2018 11:59:00 Approved lisinopril (LISINOPRIL 5 MG TABLET) TAKE 1 TABLET BY MOUTH DAILY Qty: 90 TB Days Supply: 90 Refills: 0 Substitutions Allowed Route To Pharmacy - [facility]/pharmacy #[id number] Approved simvastatin (SIMVASTATIN 10 MG TABLET) TAKE 1 TABLET BY MOUTH AT BEDTIME Qty: 90 TB Days Supply: 90 Refills: 0 Substitutions Allowed Route To Pharmacy - [facility]/pharmacy #[id number] From: [facility]/pharmacy #[id number] To: JACI LOYA MD Sent: September [...] PHONE MSG Observed: 07/16/2018 Status: F Source: [facility] 12:41 PM [facility] REPOSITORY Entered by JACI LOYA MD on July 16, 2018 12:41:20 EDT From: JACI LOYA MD To: [facility]/pharmacy #[id number] Sent: 07/16/2018 12:41:20 EDT Subject: Medication Management Submitted: Complete:metoprolol (Metoprolol Tartrate 25 mg oral tablet) Signed by JACI LOYA MD 07/16/2018 12:41:00 Approved with modifications: metoprolol (METOPROLOL TARTRATE 25 MG TAB) 1/2 TABLET DAILY Qty: 45 TB Days Supply: 90 Refills: 1 Substitutions Allowed Route To Pharmacy - [facility]/pharmacy #[id number] Patient matched by JACI LOYA MD on 07/16/2018 12:40:57 EDT From: [facility][id number] To: JACI LOYA MD Sent: July 16, [...] Observed: 06/30/2018 Status: F Source: [facility] (SPECIFY VIEWS IN 12:00 AM THREE [...] PHONE MSG Observed: 06/05/2018 Status: F Source: [facility] 7:37 AM [facility] REPOSITORY Entered by JACI LOYA MD on June 05, 2018 07:37:42 EDT From: JACI LOYA MD To: [facility][id number] Sent: 06/05/2018 07:37:42 EDT Subject: Medication Management Submitted: Complete:simvastatin (simvastatin 10 mg oral tablet) Signed by JACI LOYA MD 06/05/2018 07:37:00 Approved simvastatin (SIMVASTATIN 10 MG TABLET) TAKE 1 TABLET BY MOUTH AT BEDTIME Qty: 90 TB Days Supply: 90 Refills: 0 Substitutions Allowed Route To Pharmacy - [facility]/pharmacy #[id number] Patient matched by JACI LOYA MD on 06/05/2018 07:37:26 EDT From: [facility]/pharmacy #[id number] To: JACI LOYA MD Sent: June [...] PHONE MSG Observed: 06/03/2018 Status: F Source: [facility] 3:13 PM [facility] REPOSITORY Entered by JACI LOYA MD on June 03, 2018 15:13:30 EDT From: JACI LOYA MD To: [facility]/pharmacy #[id number] Sent: 06/03/2018 15:13:29 EDT Subject: Medication Management Submitted: Complete:lisinopril (lisinopril 5 mg oral tablet) Signed by JACI LOYA MD 06/03/2018 15:13:00 Approved lisinopril (LISINOPRIL 5 MG TABLET) TAKE 1 TABLET BY MOUTH DAILY Qty: 90 TB Days Supply: 90 Refills: 0 Substitutions Allowed Route To Pharmacy - [facility]/pharmacy #[id number] Approved lisinopril (LISINOPRIL 5 MG TABLET) TAKE 1 TABLET BY MOUTH DAILY Qty: 90 TB Days Supply: 90 Refills: 0 Substitutions Allowed Route To Pharmacy - [facility]/pharmacy #[id number] Patient matched by JACI LOYA MD on 06/03/2018 15:13:08 EDT From: [facility]/pharmacy #[id number] To: JACI LOYA MD Sent: May 28, [...] 2 VIEWS Observed: 05/30/2018 Status: F Source: [facility] 8:52 AM [facility] REPOSITORY Exam Date/Time: 05/30/2018 09:03 EDT Reason for Exam: benign essential HTN Report STUDY: XR Chest 2 Views; 05/30/2018 9:03 am INDICATION: benign essential HTN. COMPARISON: 05/13/2014 ACCESSION NUMBER(S): [id number] ORDERING CLINICIAN: Jaci Loya FINDINGS: CARDIOMEDIASTINAL SILHOUETTE: [...] AUTO DIFF Collected: 05/30/2018 Status: F Source: [facility] 8:45 AM [facility] REPOSITORY TYPE CODE TESTS RESULT OUT OF RANGE REFERENCE UNITS LAB 54178321(L 3.6-11.0 E3/mcL OINC) Normal WBC 6.3 LAB 75625454(L 3.90-6.10 E6/mcL OINC) Normal RBC 4.55 LAB 23857529(L 13.5-18.0 G/DL OINC) Normal Hgb 13.7 LAB 35063255(L 42.0-52.0 % OINC) Low Hct 41.3 LAB 06793780(L 11.5-14.5 % OINC) High RDW 14.6 LAB 74904972(L 27.0-31.0 pg OINC) Normal MCH 30.2 LAB 54238571(L 33.0-37.0 G/DL OINC) Normal MCHC 33.2 LAB 07423490(L 78.0-100.0 fL OINC) Normal MCV 90.9 LAB 92309215(L 7.4-11.0 fL OINC) Normal MPV 7.7 LAB 60377421(L 130-400 E3/mcL OINC) Normal Platelet 235 Performed By: #### [id number] #### SANDRA [employer] [facility] [place] [address] AUTO DIFF Collected: 05/30/2018 Status: F Source: [facility] 8:45 AM [facility] REPOSITORY Order Comment: Order Added by Discern Expert. TYPE CODE TESTS RESULT OUT OF RANGE REFERENCE UNITS LAB 20393720(L 37.0-75.0 % OINC) Normal Neutro Auto 67.6 LAB 61410509(L 20.0-55.0 % OINC) Normal Lymph Auto 20.3 LAB 41267437(L 0.0-10.0 % OINC) Normal [place] Auto 8.3 LAB 83460700(L 0.0-11.0 % OINC) Normal Eos Auto 3.4 LAB 94460986(L 0.0-2.0 % OINC) Normal Basophil Auto 0.4 LAB 64734719(L 1.4-6.5 E3/mcL OINC) Normal Neutro 4.2 Absolute LAB 76701762(L 1.2-3.4 E3/mcL OINC) Normal Lymph Absolute 1.3 LAB 90824861(L 0.0-0.7 E3/mcL OINC) Normal [place] Absolute 0.5 LAB 97792266(L 0.0-0.7 E3/mcL OINC) Normal Eos Absolute 0.2 LAB 72755348(L 0.0-0.2 E3/mcL OINC) Normal Basophil 0.0 Absolute Performed By: #### [id number] #### SANDRA [employer] [facility] [place] [address] T4 TOTAL Collected: 05/30/2018 Status: F Source: [facility] 8:45 AM [facility] REPOSITORY TYPE CODE TESTS RESULT OUT OF RANGE REFERENCE UNITS LAB 16541628(LO 6.09-12.23 MCG/D INC) Normal T4 10.33 Performed By: #### [id number] #### SANDRA [employer] [facility] [place] [address] CMP Collected: 05/30/2018 Status: F Source: [facility] 8:45 AM [facility] REPOSITORY TYPE CODE TESTS RESULT OUT OF RANGE REFERENCE UNITS LAB 48537741(L 70-99 mg/dL OINC) Glucose Normal Lvl 92 LAB 93584600(L 8.4-10.2 mg/dL OINC) Calcium Normal Lvl 8.8 LAB 53816628(L 136-145 mEq/L OINC) Sodium Normal Lvl 139 LAB 27684832(L 3.5-5.1 mEq/L OINC) Normal Potassium Lvl 3.9 LAB 29918374(L 98-107 mEq/L OINC) Chloride Normal 102 LAB 00166147(L 24.0-30.0 mEq/L OINC) CO2 Normal 26.5 LAB 91794021(L 7-18 mg/dL OINC) High BUN 31 LAB 1500704(LO 0.6-1.3 mg/dL INC) Normal Creatinine 1.1 LAB 67528529(L 42-121 Int._Unit/ OINC) L Alk Phos Normal 65 LAB 88640206(L 0.2-1.0 mg/dL OINC) High Bili Total 1.5 LAB 88429647(L 3.2-5.0 G/DL OINC) Albumin Normal Lvl 3.7 LAB 65816616(L 6.4-8.3 G/DL OINC) Total Normal Protein 6.8 LAB 83632209(L 10-40 Int._Unit/ OINC) L ALT Normal 22 LAB 90043455(L 10-42 Int._Unit/ OINC) L AST Normal 33 LAB 33721624(L 5.4-30.0 ratio OINC) Normal BUN/Creat Ratio 28.2 LAB 41769641(L 2.0-4.0 G/DL OINC) Globulin Normal 3.1 LAB 76536058(L 1.1-1.9 ratio OINC) A/G Normal Ratio 1.2 Performed By: #### [id number] #### SANDRA [employer] [address] [place] [address] TSH Collected: 05/30/2018 Status: F Source: [facility] 8:45 AM [facility] REPOSITORY TYPE CODE TESTS RESULT OUT OF RANGE REFERENCE UNITS LAB 93800728(LO 0.30-5.60 mIU/m INC) Normal TSH 1.51 Performed By: #### [id number] #### SANDRA [employer] [facility] [place] [address] FREE T3 Collected: 05/30/2018 Status: F Source: [facility] 8:45 AM [facility] REPOSITORY TYPE CODE TESTS RESULT OUT OF RANGE REFERENCE UNITS LAB 87575826(LO 2.5-3.9 pg/mL INC) High Free T3 4.1 Performed By: #### [id number] #### SANDRA [employer] [facility] [place] [address] EGFR Collected: 05/30/2018 Status: F Source: [facility] 8:45 AM [facility] REPOSITORY Order Comment: Order added by Discern Expert. TYPE CODE TESTS RESULT OUT OF RANGE REFERENCE UNITS LAB 20901766(LO mL/min/1.73 INC) m2 Normal eGFR >60 LAB 94761275(LO mL/min/1.73 INC) m2 Normal eGFR AA >60 Performed By: #### [id number] #### SANDRA [employer] [facility] [place] [id number] PHOSPHORUS Collected: 05/30/2018 Status: F Source: [facility] 8:45 AM [facility] REPOSITORY TYPE CODE TESTS RESULT OUT OF RANGE REFERENCE UNITS LAB 59628827(L 2.5-4.6 mg/dL OINC) Normal Phosphorus 2.6 Performed By: #### [id number] #### SANDRA [employer] [facility] [place] [id number] LIPID PROFILE Collected: 05/30/2018 Status: F Source: [facility] 8:45 AM [facility] REPOSITORY TYPE CODE TESTS RESULT OUT OF RANGE REFERENCE UNITS LAB 91791883(LO 50-200 mg/dL INC) Normal Chol 170 Result Comment: TOTAL CHOLEESTEROL: <200 NORMAL 200 - 239 BORDERLINE HIGH >240 HIGH LAB 46283944(LOINC) >=41 mg/dL Normal HDL 47 LAB 43633346(LOINC) 0-130 mg/dL Normal LDL 104 Result Comment: <100 OPTIMAL 100-129 NEAR / ABOVE OPTIMAL 130-159 BORDERLINE HIGH 160-189 HIGH >190 VERY HIGH CALC LDL NOT VALID WHEN TRIGLYCERIDE IS >400 MG/DL LAB 65088846(LOINC) 35-150 mg/dL Normal Trig 93 Result Comment: <150 NORMAL 150-199 BORDERLINE HIGH 200-499 HIGH >500 VERY HIGH LAB 35742380(LOINC) Normal VLDL 19 Performed By: #### [id number] #### SANDRA [employer] [address] [place], [place] [id number] VITAMIN D 25 HYDROXY Collected: 05/30/2018 Status: F Source: [facility] 8:45 AM [facility] REPOSITORY TYPE CODE TESTS RESULT OUT OF RANGE REFERENCE UNITS LAB [id number](L 30.0-100.0 ng/mL OINC) Normal Vitamin D 25 51.3 Hydroxy Performed By: #### [id number] #### SANDRA [employer] [facility] [place] [address] CRP Collected: 05/30/2018 Status: F Source: [facility] 8:45 AM [facility] REPOSITORY TYPE CODE TESTS RESULT OUT OF RANGE REFERENCE UNITS LAB [id number](LO 0.00-0.75 mg/dL INC) High CRP 5.16 Performed By: #### [id number] #### SANDRA [employer] [facility] [place] [id number] T3 UPTAKE Collected: 05/30/2018 Status: F Source: [facility] 8:45 AM [facility] REPOSITORY TYPE CODE TESTS RESULT OUT OF RANGE REFERENCE UNITS LAB [id number](LO % INC) Normal T3 Uptake 27 Result [...] - 39 24 - 39 Performed At: [facility] [address] [place], [place] [id number] Fracisco Blanco PhD Ph:[phone] Performed By: #### [id number] #### SANDRA [employer] [facility] [place] [id number] T3 TOTAL Collected: 05/30/2018 Status: F Source: [facility] 8:45 AM [facility] REPOSITORY TYPE CODE TESTS RESULT OUT OF RANGE REFERENCE UNITS LAB [id number](LO 71-180 ng/dL INC) Normal T3 Total 118 Result Comment: Performed At: [facility] [address] [place], [place] [id number] Fracisco Blanco PhD Ph:[phone] Performed By: #### [id number] #### SANDRA [employer]section [address] [place], [place] [id number] HISTORY AND Observed: 05/22/2018 Status: F Source: [facility] PHYSICAL-DICTATED 9:16 AM [facility] REPOSITORY [facility] [address] [place] [address] NAME J[employer]IOR [employer]ER [facility] [id number] 1945 DATE PRE-SURGICAL HISTORY AND PHYSICAL HISTORY [...] visit 05/12/2018. MD Moi KRAUS 05/20/2018 05:46 [id number] T 05/20/2018 06:01 MCJuan/CHERELLE Electronically Signed By Ester Elmore M.D. on 21 May 2018 11:37:26 GMT HISTORY AND Observed: 05/22/2018 Status: F Source: [facility] PHYSICAL-DICTATED 9:16 AM [facility] [address] 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 MD Moi KRAUS 05/21/2018 11:45 [id number] T 05/21/2018 12:23 MCB/MODL Electronically Signed By Ester Elmore M.D. on 21 May 2018 17:28:28 GMT HISTORY AND Observed: 05/22/2018 Status: F Source: [facility] PHYSICAL-DICTATED 9:16 AM [facility] [address] 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 MD Moi KRAUS 05/22/2018 09:16 [id number] T 05/22/2018 10:40 MCB/MODL Electronically Signed By Ester Elmore M.D. on 22 May 2018 15:57:42 GMT HGB AND HCT Collected: 05/22/2018 Status: F Source: [facility] 3:35 [facility] REPOSITORY TYPE CODE TESTS RESULT OUT OF RANGE REFERENCE UNITS LAB HGB 12.9-16.9 g/dL Normal Hemoglobin 14.9 LAB HCT 37.9-49.2 % Normal Hematocrit 43.2 Performed By: #### HH, CHEM8 #### Unless otherwise noted, all testing performed by [address] [place], [place] [address] CLIA: [id number] Prior Authorization Nurse: Rohan Mora M.D. BASIC METABOLIC PANEL Collected: 05/22/2018 Status: F Source: [facility] 3:35 [facility] REPOSITORY TYPE CODE TESTS RESULT OUT OF REFERENCE [...] used with caution. LAB eGFRB ml/min/1.73sq.m eGFR, -Slovenian >=60 Result Comment: GFR Calc LAB CALCM 8.4-10.2 mg/dL Calcium Low 8.1 LAB NA 135-145 mmol/L Sodium 139 LAB K 3.5-5.1 mmol/L Potassium 3.8 LAB CL 98-108 mmol/L Chloride 106 LAB CO2 21-32 mmol/L CO2 25 Performed By: #### HH, CHEM8 #### Unless otherwise noted, all testing performed by [address] [place], [place] [address] CLIA: [id number] Prior Authorization Nurse: Rohan Mora M.D. KNEE, 1 OR 2 VIEWS Observed: 05/21/2018 Status: F Source: [facility] 12:08 PM [facility] Final Report Accession No: [id number] Performed: May 21 2018 12:08PM Examination: [...] AND HCT Collected: 05/21/2018 Status: F Source: [facility] 11:56 AM [facility] TYPE CODE TESTS RESULT OUT OF RANGE REFERENCE UNITS LAB HGB 12.9-16.9 g/dL Normal Hemoglobin 14.3 LAB HCT 37.9-49.2 % Normal Hematocrit 42.5 Performed By: #### HH #### Unless otherwise noted, all testing performed by [address] [place] [id number] CLIA: [id number] Prior Authorization Nurse: Rohan Mora M.D. 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 Cassettes 1 and 2 contain patient financial representative sections. (ICT/lt) Electronically Signed By Shawn Brown DO Pathologist (Case signed 05/26/2018) CT LOWER EXT W/O Observed: 04/22/2018 Status: F Source: [facility] CONTRAST 12:43 PM [facility] Final Report Accession No: [id number] Performed: Apr 22 2018 12:43PM Examination: [...] METABOLIC PANEL Collected: 04/22/2018 Status: F Source: [facility] 10:00 AM [facility] TYPE CODE TESTS RESULT OUT OF [...] with caution. LAB eGFRB ml/min/1.73sq.m eGFR, Normal -Slovenian >=60 Result Comment: GFR Calc LAB CALCM 8.4-10.2 mg/dL Calcium Normal 9.2 LAB NA 135-145 mmol/L Sodium Normal 142 LAB K 3.5-5.1 mmol/L Normal Potassium 4.0 LAB CL 98-108 mmol/L Chloride Normal 105 LAB CO2 21-32 mmol/L CO2 Normal 28 Performed By: #### CBCDIF, CHEM8 #### Unless otherwise noted, all testing performed by [facility] [place] [address] [address] [place], [place] [address] CLIA: [id number] Prior Authorization Nurse: Rohan Mora M.D. CBC WITH DIFF Collected: 04/22/2018 Status: F Source: [facility] 10:00 AM [facility] TYPE CODE TESTS RESULT OUT OF [...] Unless otherwise noted, all testing performed by [place] [address] CLIA: [id number] Prior Authorization Nurse: Rohan Mora M.D. Observed: 04/22/2018 Status: F Source: [facility] MRSA SCREEN 10:00 AM [facility] Test Name: MRSA Screen Culture Status: Final MRSA Screen: Negative Performed By: #### MRSASCR #### Unless otherwise noted, all testing performed by [place] [address] CLIA: [id number] Prior Authorization Nurse: Rohan Mora M.D. [facility] OFFICE-PROGRESS Observed: 03/27/2018 Status: F Source: [facility] NOTES-PROVIDER 8:34 AM [facility] REPOSITORY CD:[id number] [file] [id number]== XR CALCANEUS RIGHT 2+ Observed: 02/10/2018 Status: F Source: [facility] VIEWS (STANDARD) 12:00 AM THREE REPOSITORY [...] Observed: 02/10/2018 Status: F Source: [facility] (SPECIFY VIEWS IN 12:00 AM THREE [...] Observed: 02/10/2018 Status: F Source: [facility] (SPECIFY VIEWS IN 12:00 AM THREE [...] PHONE MSG Observed: 01/16/2018 Status: C Source: [facility] 12:06 PM [facility] REPOSITORY From: Tere Boss MA To: JACI LOYA MD; Sent: 01/16/2018 11:49:20 EDT Subject: Med Management On hold pending signature Order:metoprolol (Metoprolol Tartrate 25 mg oral tablet) 0.5 tabs ORAL DAILY Qty: 45 tabs Refills: 1 Substitutions Allowed Route To Pharmacy - [facility]/pharmacy #[id number] Caller is: Medication Refill Request: [facility] From: JACI LOYA MD Sent: 01/16/2018 12:06:17 EDT Subject: RE:Med Management Approved Order:metoprolol (Metoprolol Tartrate 25 mg oral tablet) 0.5 tabs ORAL DAILY Qty: 45 tabs Refills: 1 Substitutions Allowed Route To Pharmacy - [facility]/pharmacy #[id number] Signed by JACI LOYA MD 01/16/2018 12:06:00 PHONE MSG Observed: 12/02/2017 Status: C Source: [facility] 1:34 PM [facility] REPOSITORY From: Tere Boss MA To: JACI LOYA MD; Sent: 12/02/2017 10:48:06 EST Subject: Med Management On hold pending signature Order:lisinopril (lisinopril 5 mg oral tablet) 1 tabs ORAL DAILY Qty: 90 tabs Refills: 1 Route To Pharmacy - [facility]/pharmacy #[id number] On hold pending signature Order:simvastatin (simvastatin 10 mg oral tablet) 1 tabs ORAL QHS Qty: 90 tabs Refills: 1 Route To Pharmacy [facility]/pharmacy #[id number] Caller is: Medication Refill Request: [...] SEVERITY SOURCE 10/06/2018 Drug No Known Unknown [facility] Allergy/416 Allergies/X51048 Hospital 925174(SNOM 0388(RXNORM) Repository ED CT) Drug NO KNOWN [facility] Class/99478 ALLERGIES Repository 1003(SNOMED CT) ENCOUNTERS ENCOUNTERS ADMIT/DISCHARGE ACCOUNT NUMBER ADMITTING ENCOUNTER LOCATION SOURCE CLASS 10/20/2018 [id number] [facility] ding:RAD Repository 10/08/2018/10/08/[id number] ding:SDCRoom Repository : AC10 10/06/2018/10/06/20 [id number] Jaci Loya [address] ding:.[facility] Repository 10/06/2018 [id number] [facility] ding:RAD[facility] Repository URE 10/06/2018 [id number] Ambulatory [address] [place] [address] Repository 08/11/2018/08/11/20 [id number] Ambulatory Building:[place] [address] [facility] Three ER Repository 07/29/2018/07/29/20 [id number] Ambulatory Building:[place] [address] SPORTSMEDSTU Three MBO Repository 06/30/2018/06/30/20 [id number] Ambulatory Building:[place] [address] [facility] Three ER Repository 06/30/2018 [id number] Vince Elmore [facility] Ester Vu and [facility] Repository 06/03/2018 [id number] Ambulatory Building:[facility] Three Repository 06/02/2018/06/02/20 [id number] Ambulatory Building:[place] [address] [facility] Three ER Repository 05/30/2018/05/30/20 [id number] Kodz, Jaci Ambulatory [place] [address] [facility] ding:[facility] Repository 05/30/2018 [id number] Ambulatory [address] [place] [address] Repository 05/21/2018/05/21/20 [id number] Ambulatory Building:[place] [address] [facility] Three ER Repository 05/21/2018/05/22/20 [id number] Ramírez, Ambulatory [place] [address] [address] Ortiz lding:B41 Mirella and [facility]: [place] B41 4118Bed: [place] [id number] Repository 05/19/2018/06/06/20 [id number] Ambulatory Building:[address] Three Repository 05/13/2018/05/13/20 [id number] RAMÍREZ, Ambulatory Building:[place] [address] ESTER MADRIGAL [facility] Repository 04/22/2018 [id number] Ramírez, Ambulatory [facility] Ester Vu and [facility] Repository 04/22/2018 [id number] Ramírez, Ambulatory [facility] Ester Vu and [facility] Repository 04/03/2018 [id number] Ambulatory Building:[facility] Repository 03/27/2018 [id number] Ambulatory AMBIMSVBuild [facility] ing:AMBIMSV [facility] Repository 03/27/2018/03/27/20 [id number] Ambulatory AMBIMSVBuild [place] [address] ing:AMBIMSVR General oom: [address] Center Repository 02/27/2018/02/28/20 [id number] Ramírez, Ambulatory [place] [address] [address] Ester Vu and [facility] Repository 02/24/2018/02/25/20 [id number] Ambulatory Building:[place] [address] [facility] Three ER Repository 02/10/2018/02/11/20 [id number] Ambulatory Building:[place] [address] [facility] Three ER Repository 01/16/2018 [id number] Ambulatory AMBIMMHBuild [facility] ing:[facility] Center Repository 12/02/2017 [id number] Ambulatory AMBIMMHBuild [facility] ing:[facility] Repository 04/24/2017/09/29/20 [id number] Ambulatory AMBIMSVBuild [facility] 16 ing:[facility] Repository PAYERS PAYERS ENCOUNTER GUARANTOR PAYER SUBSCRIBER SOURCE 10/20/2018 JUNIOR Petrona [id number] Primary JUNIOR E Colp [place] Insurance:AETNA BARONDOB: [facility] Number: [id number] Hospital [id number]: (419) [id number] Repository [phone] () Date:6408-46-86WL [address] [place] [address]FJ: 10/20/2018 Secondary NOT GIVENUNK Young Insurance:SELF PAY [facility] Number: Effective Repository Date:2018-10-20 10/08/2018 JUNIOR E [id number] Primary JUNIOR E Young [place] Insurance:AETNA BARONDOB: [facility] Number: [id number] Hospital [address]Bsw: (419) [id number] Repository [phone] () Date:5406-98-02AF [address] JIE LE[place] [address]GQ: 10/08/2018 Secondary NOT GIVENUNK Colp Insurance:SELF PAY [facility] Number: Effective Repository Date:2018-10-06 10/06/2018 JUNIOR E [id number] Primary JUNIOR E [place] Insurance:AETNA BARONDOB: [facility] Number: [id number] Hospital [address]Del: (419) [id number] Repository [phone] () Date:1266-63-21EA [address] JIE [place] [address]LG: 10/06/2018 Secondary NOT GIVENUNK Colp Insurance:SELF PAY [facility] Number: Effective Repository Date:2018-10-02 10/06/2018 JUNIOR WEIRICHDOB: Primary JUNIOR [facility] University Insurance:[facility] [id number] [facility] Number: COUNTRY CLUB Repository [facility] [place] [id number] [facility] [place] [id number]: Date:Plan Name:Health [id number]: (HP) (HP) 08/11/2018 JUNIOR E Primary JUNIOR E [facility] WEIRICHDOB: Insurance:AETNA [facility]: Three Repository MANAGED [id number] [place] MEDICAREPolicy [place] Number: [facility] [place] [address]Njr: (419) [id number]: (HP) Date:8066-09-42OV [phone] (HP) [place] [address]OV: 07/29/2018 JUNIOR E Primary JUNIOR E [facility] WEIRICHDOB: Insurance:AETNA LIUDMILARICHDOB: Three Repository MANAGED [id number] [place] MEDICAREPolicy [place] Number: [facility] [place] [address]Qwn: (419) [id number]: (HP) Date:5681-93-81EF [phone] (HP) [place], [place] [address]GG: 06/30/2018 JUNIOR E Primary JUNIOR E [facility] WEIRICHDOB: Insurance:AETNA BARONDOB: Three Repository MANAGED [id number] [place] MEDICAREPolicy [place] Number: [place] [address]Pwq: (419) [id number]: (HP) Date:1143-00-36AZ [phone] (HP) 147945YY [place] [address]TR: 06/30/2018 Primary JUNIOR E [facility] Insurance:AetnaJessi WEIRICHDOB: [place] and Number: [id number] [facility]FKCEffective [facility] Repository Date:Plan [place] Name:HealthElectronic [id number] PayJIE Kim [phone]: 06/03/2018 JUNIOR E Primary JUNIOR E [facility] WEIRICHDOB: Insurance:AETNA BARONDOB: Three Repository MANAGED [id number] COUNTRY CLUB MEDICAREPolicy [place], [place] Number: [facility] [place] [address]Izr: (419) [id number]: (HP) Date:1966-70-13RT [phone] (HP) 1975[address] [address]YE: 06/02/2018 JUNIOR E Primary JUNIOR E [facility] WEIRICHDOB: Insurance:AETNA BARONDOB: Three Repository MANAGED [id number] [place] MEDICAREPolicy [place] Number: [place], [place] [address]Bjx: (419) [id number]: (HP) Date:5832-05-39HK [phone] (HP) 135941ME [place] [address]XM: 05/30/2018 JUNIOR E Primary JUNIOR E [place] WEIRICHDOB: Insurance:AetnaPolicy [facility] Hospitals Number: [id number] Repository [facility]TRY [id number] [place], [place] Date:Plan Name:[place], [place] [id number]: [phone]: (HP) (HP) 05/21/2018 JUNIOR E Primary JUNIOR E [facility] WEIRICHDOB: Insurance:AETNA BARONDOB: Three Repository MANAGED [id number] [place] CLUB MEDICAREPolicy [place] Number: [place] [address]Wuu: (419) [id number] [address]Bjp: (HP) Date:9051-67-81LQ [phone] (HP) 576[address] [address]GX: 05/21/2018 Primary JUNIOR E [facility] Insurance:AetLincoln HospitalRICHDOB: [place] and Number: [id number] [facility] HospitalBJ4FKCEffective COUNTRY [facility] Repository Date:Plan [place], [place] Name:HealthElectronic [address] Pay[place], [place] [id number]: 05/19/2018 JUNIOR E Primary JUNIOR E [facility]: Insurance:AETNA BARONDOB: Three Repository MANAGED [id number] COUNTRY CLUB MEDICAREPolicy [place] Number: MANJINDER ARREOLA [address]Xos: (419) [id number] [address]Aux: (HP) Date:1004-47-26UG [phone] (HP) [id number] [place] [address]KL: 05/13/2018 JUNIOR E Primary JUNIOR E [facility] WEIRICHDOB: Insurance:AETNA BARONDOB: Three Repository MANAGED [id number] [place] CLUB MEDICAREPolicy [place] Number: [place] [address]Fwb: (419) [id number]: (HP) Date:0276-25-07ZV [phone] (HP) 529[address]FH [place] [address]UC: 05/13/2018 Secondary JUNIOR E [facility] Insurance:AETNA WEIRICHDOB: Three Repository MANAGED [id number] [facility] Centericy [place] CLUB Number: [place] [id number]: (419) Date:2552-88-62NM [phone] (HP) 865[address]BR [place] [address]KZ: 04/22/2018 Primary JUNIOR E [facility] Insurance:AetnaPolicy WEIRICHDOB: [place] and Number: [id number] [facility] HospitalJ4FKCEffective [facility] CLUB Repository Date:[place], [place] Name:HealthElectronic [address] [place], [place] [address]: 04/22/2018 Primary JUNIOR E [facility] Insurance:AetnaPolicy WEIRICHDOB: [place] and Number: [id number] [facility] HospitalJ4FKCEffective [facility] CLUB Repository Date:[place], [place] Name:HealthElectronic [address] [place], [place] [id number]: 04/03/2018 JUNIOR E Primary JUNIOR E [facility] WEIRICHDOB: Insurance:AETNA WEIRICHDOB: Three Repository MANAGED [id number] [facility]TRY [facility] MEDICAREB[facility] Gateway Medical Centericy [place], [place] Number: ELIEZERCLARENCEDERIKMANJINDER [address]Bxi: (419) [id number] [phone] (HP) Date:2014-11-04 - 8197-24-46NV [address] [address]VS: 04/03/2018 Secondary JUNIOR E [facility] Insurance:AETNA WEIRICHDOB: Three Repository MANAGED [id number] MEDICAREB[facility] Gateway Medical Centericy [place]TRY CLUB Number: [place] [id number] Date:2512-01-15NP [address] [place] [address]FA: 02/27/2018 Primary JUNIOR E [facility] Insurance:AetnaPolicy WEIRICHDOB: [place] and Number: [id number] [facility] [id number] COUNTRY CLUB Repository Date:Plan [place], [place] Name:HealthElectronic [address] PayJIE Kim [phone]: 02/24/2018 JUNIOR E Primary JUNIOR E [facility] WEIRICHDOB: Insurance:AETNA WEIPIEDADDOB: Three Repository MANAGED [id number] COUNTRY CLUB MEDICAREPolicy [place], [place] Number: [place] [address]Qzw: (246) [id number] [phone] (HP) Date:8333-03-58ZA [address] [place] [address]OR: 02/24/2018 Secondary JUNIOR E [facility] Insurance:AETNA WEIRICHDOB: Three Repository MANAGED [id number] MEDICAREPolVenueBooky COUNTRY CLUB Number: [place] [id number] Date:2535-85-22VN [address]UFJIE [place] [address]YQ: 02/10/2018 JUNIOR E Primary JUNIOR E [facility] WEIRICHDOB: Insurance:AETNA WEIRICHDOB: Three Repository MANAGED [id number] COUNTRY CLUB MEDICAREPolicy [place], [place] Number: [place] [address]Lbo: (888) [id number] [phone] (HP) Date:4383-63-24HK [address] [address]KP: 02/10/2018 Secondary JUNIOR E [facility] Insurance:AETNA WEIRICHDOB: Three Repository MANAGED [id number] MEDICAREPoliLike COUNTRY CLUB Number: [place] [id number] Date:2758-42-02AG [address] JIE L[place] [address]YB:
== END ==
PROVIDERS: Referring Provider Urology; Visit Provider Urology
DX: N20.0 Calculus of kidney (principal)
CPT/HCPCS: 74018

== ENCOUNTER → 2019-10-20 13:37 | Outpatient (CLI) | payer MEDICARE, SELFPAY ==
--- NOTE | 2019-10-20 13:44 | RAD_ITS ---
STUDY: X-RAY - ABDOMEN/PELVIS REASON FOR EXAM: Male, 74 years old. Kidney stones TECHNIQUE: KUB COMPARISON: October 20, 2019 1:54 PM FINDINGS: Normal visualized lung bases. There is an unremarkable bowel gas pattern. There is no demonstrated free abdominal air. The visualized liver, spleen and kidneys are grossly normal in size and morphology. Tiny poorly calcified density in the left upper quadrant possibly representing renal calculus. There are numerous tiny calcifications in the pelvis bilaterally likely phleboliths. Cannot definitively exclude ureteral calculus.. There is mild levoscoliosis and degenerative changes. RAD/Abdomen Single View IMPRESSION: Nonspecific abdomen Not excluded left nephrolithiasis. This may be further assessed with ultrasound or CT if clinically warranted Electronically Signed: Yazan Sales MD at 21:36 EST , Service support ,
== END ==
LOC: RAD.FUTURE 13:37 → RAD 13:39
PROVIDERS: Referring Provider Urology; Visit Provider Urology
DX: N20.0 Calculus of kidney (principal); Z12.5 Encounter for screening for malignant neoplasm of prostate
CPT/HCPCS: 36415; 74018; 84153; G0103

== ENCOUNTER → 2020-10-20 14:28 | Outpatient (CLI) | payer MEDICARE, SELFPAY ==
--- NOTE | 2020-10-20 14:30 | RAD_ITS ---
STUDY: X-RAY - ABDOMEN/PELVIS REASON FOR EXAM: Male, 75 years old. ANNUAL F/U FOR FREQUENT KIDNEY STONES PER PT, NO CURRENT COMPLAINTS TECHNIQUE: Single AP view of the abdomen / pelvis. COMPARISON: 10/20/2019. FINDINGS: No definite calcifications or renal stones seen suggestive of renal stones or ureteral stones. However there is prominent fecal contents throughout the abdomen which could obscure small stones. There is an unremarkable bowel gas pattern. There is no demonstrated free abdominal air. The visualized liver, spleen and kidneys are grossly normal in size and morphology. There are calcified phleboliths in the pelvis. Normal visualized osseous structures. RAD/Abdomen Single View IMPRESSION: Small renal stones could be obscured by overlying bowel contents. No definite renal or ureteral stones are seen. Electronically Signed: Leo Skaggs MD at 22:40 EST , Service support ,
== END ==
LOC: RAD 14:21 → RAD.FUTURE 14:28
PROVIDERS: Visit Provider Urology
DX: N20.0 Calculus of kidney (principal)
CPT/HCPCS: 74018

== ENCOUNTER → 2022-03-22 | Outpatient (CLI) | payer MEDICARE, SELFPAY ==
--- NOTE | 2022-03-22 08:30 | RAD_ITS ---
STUDY: X-RAY - ABDOMEN/PELVIS REASON FOR EXAM: Male, 76 years old. KIDNEY STONE TECHNIQUE: Single AP view of the abdomen / pelvis. COMPARISON: Comparison is made with prior study dated 07/21/2020. FINDINGS: Normal visualized lung bases. There is an abundance of fecal material throughout the colon. Small calculus in the lower pole calculus of the right kidney. There are calcified phleboliths in the pelvis. There are diffuse degenerative changes of the visualized lumbar spine. RAD/Abdomen Single View IMPRESSION: Small calculus in the lower pole of the right kidney. Electronically Signed: Blaine Mabry MD at 13:17 EDT ,
[2022-03-22 10:57] LABS: PSA,Total - Annual Screen 1.59 ng/mL (0.00-4.00)
== END | disposition home or self-care (01) ==
PROVIDERS: Referring Provider Urology; Visit Provider Urology
DX: N20.0 Calculus of kidney (principal); Z12.5 Encounter for screening for malignant neoplasm of prostate
CPT/HCPCS: 36415; 74018; 84153; G0103

== ENCOUNTER → 2023-04-30 | Outpatient (CLI) | payer MEDICARE, SELFPAY ==
[2023-04-30 17:24] LABS: PSA,Total - Annual Screen 2.14 ng/mL (0.00-4.00)
== END | disposition home or self-care (01) ==
LOC: LAB 15:53
PROVIDERS: Referring Provider Urology; Visit Provider Urology
DX: Z12.5 Encounter for screening for malignant neoplasm of prostate (principal)
CPT/HCPCS: 36415; 84153; G0103

== ENCOUNTER → 2025-05-04 | Outpatient (CLI) | payer MEDICARE, SELFPAY ==
[2025-05-04 12:27] LABS: PSA,Total - Annual Screen 2.11 ng/mL (0.02-4.00)
== END | disposition home or self-care (01) ==
PROVIDERS: Referring Provider Urology; Visit Provider Urology
DX: Z12.5 Encounter for screening for malignant neoplasm of prostate (principal)
CPT/HCPCS: 36415; 84153; G0103